=== PATIENT | male | born 1965 | race Caucasian/White ===

== ENCOUNTER 2016-12-31 11:21 | Inpatient (IN) | payer OTHER ==
[2016-12-31] VITALS (11 sets, daily range): BP systolic 116–156; BP diastolic 68–87; PULSE 71–129; RESP 15–26; TEMP 99.3–102.5; O2SAT 94–100
[~2016-12-31] VITALS: Ht 172.7 cm; Wt 59.0 kg
[2016-12-31] MEDS ORDERED: cefTRIAXone INJ 2,000 MG in SODIUM CHLORIDE 0.9% INJ 100 ML IV STA (11:27)
[2016-12-31] MEDS ORDERED: VANCOMYCIN INJ 1,000 MG in SODIUM CHLOR 0.9% 250 ML INJ 250 ML IV ONE (11:30)
[2016-12-31] MEDS ORDERED: ACETAMINOPHEN 650 MG SUPP RECTAL ONE (11:30)
--- NOTE | 2016-12-31 11:46 | PD ---
HPI Chief Complaint: Altered Mental Status Time Seen by Provider: 11:26 Travel History International Travel<30 days: No Contact w/Intl Traveler<30days: No Traveled to known affect area: No History of Present Illness HPI Middle-aged male was brought in by EMS after patient was found unresponsive at a local place. Patient was found unresponsive this morning by an acquaintance. EMS was called. Fire rescue reported patient probably had seizure activity when they arrived to the scene. EMS did not witness any seizure activity. Patient was lethargic and unable to provide information. Patient responded to the name Dar at the scene. Medication bottles was found at the scene. One of the bottle with label Keppra. Unable to get any information about medical history or medications or allergies. [facility] Social History Tobacco Use: No Allergies-Medications (Allergen,Severity, Reaction): Coded Allergies: UNOBTAINABLE (Unverified , 12/31/16) Reported Meds & Prescriptions Reported Meds & Active Scripts Active Active Prescriptions or Reported Medications Unobtainable Review of Systems General / Constitutional: Positive: Fever Eyes: No: Visual changes HENT: No: Headaches Cardiovascular: No: Chest Pain or Discomfort Respiratory: No: Shortness of Breath Gastrointestinal: No: Abdominal Pain Genitourinary: No: Dysuria Musculoskeletal: No: Pain Skin: No Rash Neurologic: Positive: Change in Mentation, No: Weakness Psychiatric: No: Depression Endocrine: No: Polydipsia Hematologic/Lymphatic: No: Easy Bruising Physical Exam Narrative GENERAL: Thin male, lethargic. SKIN: Focused skin assessment warm/dry. HEAD: Normocephalic. EYES: No scleral icterus. No injection or drainage. Pupils 3 mm equal reactive. NECK: Supple, trachea midline. No JVD or lymphadenopathy. Patient can move the neck without complaining of pain. CARDIOVASCULAR: Regular rate and rhythm without murmurs, gallops, or rubs. RESPIRATORY: Breath sounds equal bilaterally. No accessory muscle use. GASTROINTESTINAL: Abdomen soft, non-tender, nondistended. MUSCULOSKELETAL: No cyanosis, or edema. BACK: Nontender without obvious deformity. No CVA tenderness. neurologic exam: Patient open eyes on command. Patient is not verbalizing. Patient moves extremity minimally on pain stimuli. Deep tendon reflexes 2+ and equal. Negative Babinski. Data Data Last Documented VS Vital Signs Date Time Temp Pulse Resp B/P Pulse Ox O2 Delivery O2 Flow Rate FiO2 12/31/16 12:24 14 Non-Rebreather 95 12/31/16 12:19 95 12/31/16 12:19 9 12/31/16 11:29 102.5 129 156/85 Orders Electrocardiogram (12/31/16 11:27) Complete Blood Count With Diff (12/31/16 11:27) Comprehensive Metabolic Panel (12/31/16 11:) Prothrombin Time / Inr (Pt) (12/31/16 11:) Act Partial Throm Time (Ptt) (12/31/16 11:27) Lactic Acid Sepsis Protocol (12/31/16 11:27) Ckmb (Isoenzyme) Profile (12/31/16:) Troponin I (12/31/16:) Urinalysis - C+S If Indicated (12/31/16 11:27) Lumbar Puncture (12/31/16 11:27) Csf Hsv I/Ii Dna,Pcr (12/31/16 11:) Csf Cell Count + Differential (12/31/16 11:) Glucose, Csf (12/31/16 11:) Total Protein, Csf (12/31/16 11:27) Csf Culture And Gram Stain (12/31/16 11:) Blood Culture (12/31/16 11:27) Chest, Single Ap (12/31/16 11:27) Arterial Blood Gas (Abg) (12/31/16 11:27) Blood Glucose (12/31/16 11:27) Ecg Monitoring (12/31/16 11:) Iv Access Insert/Monitor (12/31/16:) Oximetry (12/31/16 11:27) Oxygen Administration (12/31/16 11:27) Urinary Catheter Insert/Apply (12/31/16 11:27) Acetaminophen Supp (Tylenol Supp) (12/31/16 11:30) Ct Brain W/O Iv Contrast(Rout) (12/31/16 11:27) Ceftriaxone Inj (Rocephin Inj) (12/31/16 11:27) Vancomycin Inj (Vancomycin Inj) (12/31/16 11:30) Sodium Chlor 0.9% 1000 Ml Inj (Ns 1000 M (12/31/16 12:00) Sodium Chlor 0.9% 1000 Ml Inj (Ns 1000 M (12/31/16 12:00) Restraints Non-Violent FELIPA.Q3H (12/31/16 12:23) Urine Culture (12/31/16 12:17) Drug Screen, Random Urine (12/31/16 13:10) Ammonia (12/31/16 13:11) Amylase (12/31/16 13:11) Magnesium (Mg) (12/31/16 13:11) Phosphorus (Po4) (12/31/16 13:11) Fibrinogen (12/31/16 13:11) Thyroid Stimulating Hormone (12/31/16 13:11) Troponin I (12/31/16 13:11) Hemoglobin (Hgb) A1c (12/31/16 13:11) Admit Order (Ed Use Only) (12/31/16 13:13) Labs Laboratory Tests Test 12/31/16 12/31/16 12/31/16 12/31/16 11:39 11:40 12:17 13:04 Blood Gas Puncture Site RT RADIAL Blood Gas Patient Temperature 98.6 Blood Gas HCO3 23 mmol/L Blood Gas Base Excess -3.4 mmol/L Blood Gas Oxygen Saturation 94 % Arterial Blood pH 7.22 Arterial Blood Partial 60 mmHg Pressure CO2 Arterial Blood Partial 177 mmHG Pressure O2 Arterial Blood Oxygen Content 19.1 Vol % Arterial Blood 3.5 % Carboxyhemoglobin Arterial Blood Methemoglobin 1.0 % Blood Gas Hemoglobin 14.2 G/DL Oxygen Delivery Device NONREBREATHER Blood Gas Liter Flow 10 L/M Blood Gas Inspired Oxygen 100 % White Blood Count 10.6 TH/MM3 Red Blood Count 3.98 MIL/MM3 Hemoglobin 14.1 GM/DL Hematocrit 41.2 % Mean Corpuscular Volume 103.5 FL Mean Corpuscular Hemoglobin 35.4 PG Mean Corpuscular Hemoglobin 34.2 % Concent Red Cell Distribution Width 13.5 % Platelet Count 138 TH/MM3 Mean Platelet Volume 7.1 FL Neutrophils (%) (Auto) 70.5 % Lymphocytes (%) (Auto) 15.6 % Monocytes (%) (Auto) 13.6 % Eosinophils (%) (Auto) 0.0 % Basophils (%) (Auto) 0.3 % Neutrophils # (Auto) 7.5 TH/MM3 Lymphocytes # (Auto) 1.7 TH/MM3 Monocytes # (Auto) 1.4 TH/MM3 Eosinophils # (Auto) 0.0 TH/MM3 Basophils # (Auto) 0.0 TH/MM3 CBC Comment AUTO DIFF Differential Total Cells 100 Counted Neutrophils % (Manual) 58 % Band Neutrophils % 28 % Lymphocytes % 3 % Monocytes % 11 % Neutrophils # (Manual) 9.1 TH/MM3 Differential Comment FINAL DIFF MANUAL Platelet Estimate LOW Platelet Morphology Comment NORMAL Prothrombin Time 11.4 SEC Prothromb Time International 1.0 RATIO Ratio Activated Partial 32.7 SEC Thromboplast Time Sodium Level 132 MEQ/L Potassium Level 3.7 MEQ/L Chloride Level 96 MEQ/L Carbon Dioxide Level 22.5 MEQ/L Anion Gap 14 MEQ/L Blood Urea Nitrogen 6 MG/DL Creatinine 0.94 MG/DL Estimat Glomerular Filtration 69 ML/MIN Rate Random Glucose 227 MG/DL Calcium Level 8.0 MG/DL Total Bilirubin 0.5 MG/DL Aspartate Amino Transf 40 U/L (AST/SGOT) Alanine Aminotransferase 33 U/L (ALT/SGPT) Alkaline Phosphatase 108 U/L Total Creatine Kinase 96 U/L Troponin I LESS THAN 0.02 NG/ML Total Protein 7.9 GM/DL Albumin 3.5 GM/DL Ethyl Alcohol Level LESS THAN 3 MG/DL Urine Color YELLOW Urine Turbidity HAZY Urine pH 5.0 Urine Specific [place] 1.017 Urine Protein 30 mg/dL Urine Glucose (UA) 1000 mg/dL Urine Ketones 40 mg/dL Urine Occult Blood MOD Urine Nitrite NEG Urine Bilirubin NEG Urine Urobilinogen LESS THAN 2.0 MG/DL Urine Leukocyte Esterase NEG Urine RBC LESS THAN 1 /hpf Urine WBC LESS THAN 1 /hpf Urine Squamous Epithelial <1 /hpf Cells Urine Bacteria OCC /hpf Urine Hyaline Casts 2 /lpf Urine Mucus FEW /lpf Microscopic Urinalysis Comment CATH-CULTURE IND Urine Opiates Screen NEG Urine Barbiturates Screen NEG Urine Amphetamines Screen NEG Urine Benzodiazepines Screen NEG Urine Cocaine Screen NEG Urine Cannabinoids Screen POS CSF Volume (Tube 1) 2.2 ML CSF Supernatant Color (tube 1) CLEAR CSF Gross Blood (Tube 1) 1+ CSF Volume (Tube 2) 1.7 ML CSF Supernatant Color (tube 2) CLEAR CSF Gross Blood (Tube 2) TRACE CSF WBC (Tube 2) 3 /MM3 CSF RBC (Tube 2) 162 /MM3 CSF Volume (Tube 3) 1.9 ML CSF Supernatant Color (tube 3) CLEAR CSF Gross Blood (Tube 3) TRACE CSF Volume (Tube 4) 2.0 ML CSF Supernatant Color (tube 4) CLEAR CSF Gross Blood (Tube 4) 1+ CSF Neutrophils 20 % CSF Lymphocytes 46 % CSF Monocytes 34 % CSF Glucose 112 MG/DL CSF Total Protein 48.3 MG/DL MDM Medical Decision Making Medical Screen Exam Complete: Yes Emergency Medical Condition: Yes Interpretation(s) Last Impressions Head CT 12/31/16 1127 Signed Impressions: Service Date/Time: Saturday, December 31, 2016 12:29 - CONCLUSION: 1. No acute intracranial abnormality is identified. 2. Paranasal sinus mucoperiosteal thickening. Dar Pham MD Chest X-Ray 12/31/16 1127 Signed Impressions: Service Date/Time: Saturday, December 31, 2016 11:52 - CONCLUSION: No acute cardiopulmonary abnormality is identified. Dar Pham MD 1305 PM. CBC WBC 10.6. Hemoglobin 14.1 hematocrit 41.2. MCV 103.5. Platelet 138. Differential Diagnosis Differential diagnosis including sepsis, meningitis, electrolyte imbalance, dehydration, OK, substance-induced mood disorder. Narrative Course Middle-age male was brought in for fever and altered mental status. Possible history of seizure. Sepsis workup started. Normal saline solution 2 L IV bolus. Rocephin 2 g IV. Vancomycin 1 g IV. Scripts Unable to Obtain Active Prescriptions or Reported Meds Liam Ferris MD Dec 31, 2016 11:45
[2016-12-31 11:54] LABS: BLOOD GAS BASE EXCESS -3.4 mmol/L (-2-2); BLOOD GAS CARBOXYHEMOGLOBIN 3.5 % (0-4); BLOOD GAS HCO3 23 mmol/L (22-26); BLOOD GAS O2 HGB SATURATION 94 % (90-100); BLOOD GAS OXYGEN CONTENT 19.1 Vol % (12.0-20.0); BLOOD GAS PCO2 60 mmHg (38-42); BLOOD GAS PO2 177 mmHG (61-120); BLOOD GAS TOTAL HGB 14.2 G/DL (12.0-16.0); CRITICAL VALUE YES; TEMP CORR TO 98.6
[2016-12-31 11:55] LABS: DRAW SITE RT RADIAL; FIO2 100 %; LITER FLOW 10 L/M; NUMBER OF ARTERIAL PUNCTURES 1; OXYGEN DEVICE NONREBREATHER; STAT YES; ULNAR PULSE PRESENT
[2016-12-31] MEDS ORDERED: SODIUM CHLOR 0.9% 1000 ML INJ 1,000 ML IV ONE ×2 (12:00)
--- NOTE | 2016-12-31 12:06 | RADRPT ---
EXAM DATE/TIME: 12/31/2016 11:52 [facility] COMPARISON: No previous studies available for comparison. INDICATIONS : Fever MEDICAL HISTORY : None. SURGICAL HISTORY : None. ENCOUNTER: Initial ACUITY: 1 day PAIN SCORE: Non-responsive. LOCATION: chest FINDINGS: Portable AP view of the chest demonstrates a normal-sized cardiac silhouette. No effusion, consolidat ion, or pneumothorax is visualized. The bones and soft tissues demonstrate no acute abnormality. Lung s are underinflated with mild atelectasis at the lung bases. CONCLUSION: No acute cardiopulmonary abnormality is identified. Dar Pham MD on December 31, 2016 at 12:04 Board Certified Radiologist. This report was verified electronically.
[2016-12-31 12:13] LABS: AUTOMATED NEUTROPHIL # 7.5 TH/MM3 (1.8-7.7); BASOPHIL % 0.3 % (0.0-2.0); HEMATOCRIT 41.2 % (39.0-51.0); LYMPH % 15.6 % (9.0-44.0); LYMPHOCYTE # 1.7 TH/MM3 (1.0-4.8); MEAN CELL VOLUME 103.5 FL (80.0-100.0); MEAN CORPUSCULAR HEMOGLOBIN 35.4 PG (27.0-34.0); MEAN CORPUSCULAR HGB CONC 34.2 % (32.0-36.0); MONO % 13.6 % (0.0-8.0); NEUT % 70.5 % (16.0-70.0); PLATELET COUNT 138 TH/MM3 (150-450); RED BLOOD COUNT 3.98 MIL/MM3 (4.50-5.90); RED CELL DISTRIBUTION WIDTH 13.5 % (11.6-17.2); WHITE BLOOD COUNT 10.6 TH/MM3 (4.0-11.0)
[2016-12-31 12:15] LABS: HEMO FLAGS AUTO DIFF
[2016-12-31 12:20] LABS: APTT (PATIENT) 32.7 SEC (24.3-30.1); PROTHROMBIN TIME - PATIENT 11.4 SEC (9.8-11.6)
[2016-12-31 12:27] LABS: ALT (GPT) 33 U/L (12-78); ANION GAP 14 MEQ/L (5-15); AST (GOT) 40 U/L (15-37); BICARBONATE 22.5 MEQ/L (21.0-32.0); BLOOD UREA NITROGEN 6 MG/DL (7-18); CHLORIDE 96 MEQ/L (98-107); GLOMERULAR FILTRATION RATE 69 ML/MIN (>89); POTASSIUM 3.7 MEQ/L (3.5-5.1); SODIUM (NA) 132 MEQ/L (136-145)
[2016-12-31 12:31] LABS: ALKALINE PHOSPHATASE 108 U/L (45-117); CREATINE KINASE 96 U/L (39-308); TOTAL BILIRUBIN ADULT 0.5 MG/DL (0.2-1.0)
--- NOTE | 2016-12-31 12:39 | RADRPT ---
EXAM DATE/TIME: 12/31/2016 12:29 [facility] COMPARISON: No previous studies available for comparison. INDICATIONS : Altered mental status; possible seizure. RADIATION DOSE: 35.64 CTDIvol (mGy) MEDICAL HISTORY : Non-responsive. SURGICAL HISTORY : Non-responsive. ENCOUNTER: Initial ACUITY: 1 day PAIN SCALE: Non-responsive LOCATION: cranial TECHNIQUE: Multiple contiguous axial images were obtained of the head. Using automated exposure control and adj ustment of the mA and/or kV according to patient size, radiation dose was kept as low as reasonably a chievable to obtain optimal diagnostic quality images. DICOM format image data is available electro nically for review and comparison. FINDINGS: CEREBRUM: There is mild cerebral atrophy. Ventricles are normal in size. No midline shift, mass lesion, hemorr j carlos or acute infarction. No extra-axial fluid collections are seen. POSTERIOR FOSSA: The cerebellum and brainstem demonstrate no acute finding. The 4th ventricle is midline. The cerebe llopontine angle is unremarkable. EXTRACRANIAL: There is severe mucoperiosteal thickening throughout the paranasal sinuses. Hardware is present bilat erally related to prior ORIF. SKULL: The calvaria is intact. No acute skull fracture. CONCLUSION: 1. No acute intracranial abnormality is identified. 2. Paranasal sinus mucoperiosteal thickening. Dar Pham MD on December 31, 2016 at 12:35 Board Certified Radiologist. This report was verified electronically.
[2016-12-31 12:41] LABS: BACTERIA, URINE OCC /hpf; BLOOD, URINE MOD (NEG); COMMENT (UR) CATH-CULTURE IND; CULTURE IF INDICATED CATH CULTURE IND; GLUCOSE,URINE 1000 mg/dL (NEG); HYALINE CAST, URINE 2 /lpf (RARE); KETONE, URINE 40 mg/dL (NEG); MUCUS URINE FEW /lpf (OCC); NITRITE,URINE NEG (NEG); SQUAMOUS EPITHELIAL CELL URINE <1 /hpf (0-5); URINE COLOR YELLOW (YELLW/STRAW)
[2016-12-31 12:50] LABS: BANDS 28 % (0-6); NEUTROPHIL # MANUAL DIFF 9.1 TH/MM3 (1.8-7.7); PLATELET ESTIMATE SMEAR LOW (NORMAL); PLATELET MORPHOLOGY NORMAL (NORMAL); POLYS (SEG NEUTROPHILS) 58 % (16-70); SCAN/DIFF FINAL DIFF MANUAL; WBC DIFF SAMPLE 100
[2016-12-31] MEDS ORDERED: LORazepam 2 MG TAB PO PRN (13:45)
[2016-12-31] MEDS ORDERED: FLUMAZENIL 0.5 MG/5 ML VIAL IV PUSH PRN (13:45)
[2016-12-31] MEDS ORDERED: SODIUM CHLORIDE 0.9% FLUSH 10 ML FLUSH IV FLUSH PRN ×2 (13:45→14:00)
[2016-12-31] MEDS ORDERED: LORazepam 1 MG TAB PO PRN (13:45)
[2016-12-31] MEDS ORDERED: RESP: ALBUTEROL 2.5 MG/3 ML NEB (PRN) INH (14:00)
[2016-12-31] MEDS ORDERED: MAGNESIUM SULFATE INJ 4 GM in SODIUM CHLORIDE 0.9% INJ 92 ML IV PRN (14:00)
[2016-12-31] MEDS ORDERED: BISACODYL 10 MG SUPP RECTAL PRN (14:00)
[2016-12-31] MEDS ORDERED: DEXTROSE 50% IN WATER 50 ML VIAL(D50) IV PRN (14:00)
[2016-12-31] MEDS ORDERED: ONDANSETRON HCL 4 MG/2 ML VIAL IV PRN (14:00)
[2016-12-31] MEDS ORDERED: LACTULOSE SYRUP 20 GM/30 ML CUP PO PRN (14:00)
[2016-12-31] MEDS ORDERED: CHLORHEXIDINE GLUCONATE 2 % 1 PACK (2 CLOTHS) TOP PRN (14:00)
[2016-12-31] MEDS ORDERED: MAGNESIUM SULFATE INJ 2 GM in SODIUM CHLORIDE 0.9% INJ 96 ML IV PRN (14:00)
[2016-12-31] MEDS ORDERED: POTASSIUM PHOSPHATE MONOBASIC 500 MG TAB PO/TUBE PRN (14:00)
[2016-12-31] MEDS ORDERED: MISCELLANEOUS NURSING INFORMATION XX SCH (14:00)
[2016-12-31] MEDS ORDERED: POTASSIUM PHOSPHATE MONOBASIC 500 MG TAB PO PRN (14:00)
[2016-12-31] MEDS ORDERED: MAGNESIUM HYDROXIDE SUSP 30 ML CUP PO PRN (14:00)
[2016-12-31] MEDS ORDERED: LORazepam 2 MG/ML VIAL IV PUSH ONE (14:00)
[2016-12-31] MEDS ORDERED: POTASSIUM CHLOR 20 MEQ PREMIX 100 ML IV PRN (14:00)
[2016-12-31] MEDS ORDERED: SENNOSIDES 8.6 MG TAB PO PRN (14:00)
[2016-12-31] MEDS ORDERED: SODIUM PHOSPHATE INJ 30 MMOL in SODIUM CHLOR 0.9% 250 ML INJ 240 ML IV PRN (14:00)
[2016-12-31] MEDS ORDERED: ACETAMINOPHEN 325 MG TAB PO PRN (14:00)
[2016-12-31] MEDS ORDERED: POTASSIUM CHLOR 40 MEQ PREMIX 100 ML IV PRN ×2 (14:00)
[2016-12-31] MEDS ORDERED: Vancomycin Consult Pharmacy 1 EA OTHER SCH (14:00)
[2016-12-31] MEDS ORDERED: MAGNESIUM OXIDE 400 MG TAB PO PRN (14:00)
[2016-12-31] MEDS ORDERED: GLUCAGON 1 MG/ML VIAL OTHER PRN (14:00)
[2016-12-31] MEDS ORDERED: POTASSIUM CHLORIDE 25 MEQ EFFERVESCENT TAB PO PRN (14:00)
[2016-12-31] MEDS ORDERED: levETIRAcetam INJ 500 MG in SODIUM CHLORIDE 0.9% INJ 100 ML IV ONE ×2 (14:00→14:30)
--- NOTE | 2016-12-31 14:06 | HHI.HP ---
[facility] Service Critical Care Medicine Primary Care Physician Unknown Admission Diagnosis sepsis. Rule out meningitis. Possible seizure. Diagnosis: (1) Seizure disorder Diagnosis: Principal (2) Bipolar 1 disorder Diagnosis: Principal (3) Alcoholism Diagnosis: Principal (4) Pyrexia Diagnosis: Principal (5) Altered mental status, unspecified Diagnosis: Principal (6) Macrocytosis without anemia Diagnosis: Principal (7) Thrombocytopenia Diagnosis: Principal (8) Hyponatremia Diagnosis: Principal (9) Hyperglycemia Diagnosis: Principal (10) Elevated AST (SGOT) Diagnosis: Principal (11) Depression Diagnosis: Principal (12) Polysubstance abuse Diagnosis: Principal (13) Tobacco abuse Diagnosis: Principal (14) Tetrahydrocannabinol (THC) use disorder, mild, abuse Diagnosis: Principal (15) COPD (chronic obstructive pulmonary disease) Diagnosis: Principal (16) Acute respiratory acidosis Diagnosis: Principal (17) Hepatitis C Diagnosis: Principal (18) Acute hypoxemic respiratory failure Diagnosis: Principal (19) SIRS (systemic inflammatory response syndrome) Chief Complaint: Found unresponsive by partner. Pyrexia. Travel History International Travel<30 Days: No Contact w/Intl Traveler <30 Da: No Traveled to Known Affected Are: No Sepsis Criteria SIRS Criteria (2 or more): Temp > 100.9 or < 96.8 Criteria Outcome: Meets SIRS criteria History of Present Illness This is a middle-aged male. Name possibly Dar Knox. He acknowledges. This is on his bottle of Levetiracetam. He acknowledges being approximately 51 years old. According to records, past medical history of EtOH , hepatitis C bipolar disorder, tobaccoism, THC/polysubstance abuse, COPD and alcoholism treatment 12-18 beers daily. He was found by an acquaintance unresponsive and febrile. His transported [facility] with questionable seizure activity noted in route. At this facility, patient was noted to be febrile temperature greater than 102. CT head showed plating in the right maxillary sinus region. He also has history of left mandible fracture with abscess formation after he left AMA. 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 Patient has a macrocytosis, thrombocytopenia, elevated AST and elevated PTT. Sodium is 132. Remainder baseline laboratories unremarkable. Lumbar puncture was clear to according to ED physician. Results still pending. Received 1 g vancomycin and 2 g ceftriaxone IV. Noted toxicology screen and multiple laboratory still pending at time of dictation. When I evaluated patient, ABG showed pH 7.2, PCO2 60, PO2 177. Patient was taken up nonrebreather mask is currently on a Venturi mask. Currently saturation 100%. Patient came more awake and alert. States he drinks alcohol and recently did methamphetamines. He states he did not inject. No track valdivia are appreciated on his arms. Review of Systems ROS Limitations: Altered Mental Status Past Family Social History Allergies: Coded Allergies: UNOBTAINABLE (Unverified , 12/31/16) Past Medical History Bipolar disorder Depression History of suicide ideation Alcoholism COPD Tobaccoism Hepatitis C Polysubstance abuse Past Surgical History Left mandible fracture status post ORIF Right maxillary fracture secondary TBI age 14 T&A History of lung procedure unknown type Reported Medications Unknown. On Keppra 500 mg daily according to bottle in front of us Active Ordered Medications Reviewed in EMR Family History Positive history of alcoholism according to past records. Patient is not able to tell me his family history due to altered mental status. Social History Degradation of EtOH 12-18 beers daily, 1-1/2 pack per day tobacco, THC use. Methamphetamine use. Physical Exam Vital Signs Vital Signs Date Time Temp Pulse Resp B/P Pulse Ox O2 Delivery O2 Flow Rate FiO2 12/31/16 13:47 100.4 80 18 116/71 97 Nasal Cannula 4 12/31/16 13:20 71 18 116/72 97 12/31/16 12:24 14 Non-Rebreather 95 12/31/16 12:19 95 Non-Rebreather 12/31/16 12:19 16 94 Non-Rebreather 9 12/31/16 11:29 102.5 129 15 156/85 96 Non-Rebreather 15 Physical Exam GENERAL: Middle-aged disheveled male, critically ill currently resting in bed on a Venturi mask SKIN: Warm and dry. No rash. Bilateral upper extremity tattoos. HEAD: Prior scars left mandible from traumatic brain injury/fracture/history of right maxillary ORIF EYES: Pupils equal and round about 2 mm bilaterally and reactive. No scleral icterus. No injection or drainage. ENT: No nasal bleeding or discharge. Mucous membranes pink and moist. NECK: Trachea midline. No JVD. CARDIOVASCULAR: Regular rate and rhythm. S1, S2. No S4. Without murmur RESPIRATORY: Diminished breath sounds throughout. Few bibasilar crackles. Positive end expiratory wheezes. GASTROINTESTINAL: Abdomen soft, non-tender, nondistended. Hypoactive bowel sounds MUSCULOSKELETAL: Extremities without significant peripheral edema. No obvious deformities. NEUROLOGICAL: Awake and arousable. Moves all 4 extremities spontaneously. Follows commands by nodding enhancing giving one-word answers. Laboratory Laboratory Tests Test 12/31/16 12/31/16 12/31/16 12/31/16 11:39 11:40 12:17 13:04 Blood Gas Puncture Site RT RADIAL Blood Gas Patient Temperature 98.6 Blood Gas HCO3 23 Blood Gas Base Excess -3.4 Blood Gas Oxygen Saturation 94 Arterial Blood pH 7.22 Arterial Blood Partial 60 Pressure CO2 Arterial Blood Partial 177 Pressure O2 Arterial Blood Oxygen Content 19.1 Arterial Blood 3.5 Carboxyhemoglobin Arterial Blood Methemoglobin 1.0 Blood Gas Hemoglobin 14.2 Oxygen Delivery Device NONREBREATHER Blood Gas Liter Flow 10 Blood Gas Inspired Oxygen 100 White Blood Count 10.6 Red Blood Count 3.98 Hemoglobin 14.1 Hematocrit 41.2 Mean Corpuscular Volume 103.5 Mean Corpuscular Hemoglobin 35.4 Mean Corpuscular Hemoglobin 34.2 Concent Red Cell Distribution Width 13.5 Platelet Count 138 Mean Platelet Volume 7.1 Neutrophils (%) (Auto) 70.5 Lymphocytes (%) (Auto) 15.6 Monocytes (%) (Auto) 13.6 Eosinophils (%) (Auto) 0.0 Basophils (%) (Auto) 0.3 Neutrophils # (Auto) 7.5 Lymphocytes # (Auto) 1.7 Monocytes # (Auto) 1.4 Eosinophils # (Auto) 0.0 Basophils # (Auto) 0.0 CBC Comment AUTO DIFF Differential Total Cells 100 Counted Neutrophils % (Manual) 58 Band Neutrophils % 28 Lymphocytes % 3 Monocytes % 11 Neutrophils # (Manual) 9.1 Differential Comment FINAL DIFF MANUAL Platelet Estimate LOW Platelet Morphology Comment NORMAL Prothrombin Time 11.4 Prothromb Time International 1.0 Ratio Activated Partial 32.7 Thromboplast Time Sodium Level 132 Potassium Level 3.7 Chloride Level 96 Carbon Dioxide Level 22.5 Anion Gap 14 Blood Urea Nitrogen 6 Creatinine 0.94 Estimat Glomerular Filtration 69 Rate Random Glucose 227 Calcium Level 8.0 Total Bilirubin 0.5 Aspartate Amino Transf 40 (AST/SGOT) Alanine Aminotransferase 33 (ALT/SGPT) Alkaline Phosphatase 108 Total Creatine Kinase 96 Troponin I LESS THAN 0.02 Total Protein 7.9 Albumin 3.5 Urine Color YELLOW Urine Turbidity HAZY Urine pH 5.0 Urine Specific [place] 1.017 Urine Protein 30 Urine Glucose (UA) 1000 Urine Ketones 40 Urine Occult Blood MOD Urine Nitrite NEG Urine Bilirubin NEG Urine Urobilinogen LESS THAN 2.0 Urine Leukocyte Esterase NEG Urine RBC LESS THAN 1 Urine WBC LESS THAN 1 Urine Squamous Epithelial <1 Cells Urine Bacteria OCC Urine Hyaline Casts 2 Urine Mucus FEW Microscopic Urinalysis Comment CATH-CULTURE IND CSF Glucose 112 CSF Total Protein 48.3 Date/Time Procedure Status Source Growth 12/31/16 13:04 Gram Stain Received Cerebral Spinal Fluid Lumbar Puncture Pending 12/31/16 13:04 CSF Culture Received Cerebral Spinal Fluid Lumbar Puncture Pending 12/31/16 12:17 Urine Culture Received Urine Catheterized Urine Pending 12/31/16 11:50 Aerobic Blood Culture Received Blood Peripheral Pending 12/31/16 11:50 Anaerobic Blood Culture Received Blood Peripheral Pending Result Diagram: 12/31/16 1140 12/31/16 1140 Imaging Last Impressions Head CT 12/31/16 1127 Signed Impressions: Service Date/Time: Saturday, December 31, 2016 12:29 - CONCLUSION: 1. No acute intracranial abnormality is identified. 2. Paranasal sinus mucoperiosteal thickening. Dar Pham MD Chest X-Ray 12/31/16 1127 Signed Impressions: Service Date/Time: Saturday, December 31, 2016 11:52 - CONCLUSION: No acute cardiopulmonary abnormality is identified. Dar Pham MD Assessment and Plan Assessment and Plan Neuro/Psych: Acute delirium rule out meningeoencephalitis Seizure disorder NOS History of TBI age 14 History of left mandible fracture 2014 Bipolar disorder NOS EtOH THC use History of polysubstance abuse History of suicide ideation CT head revealed retained hardware left mandible/right maxillary region from prior trauma, otherwise no acute intracranial findings CSF glucose 112/MBS is 227 and CSF protein 48.3 which is slightly elevated Cell count and differential pending See infectious disease for workup Seizure precaution/DT withdrawal protocol CIWA initiated see orders Thiamine, folate, multivitamin daily Drug screen, EtOH all pending CV: Sinus tachycardia Currently on normal saline at 84 cc an hour. Currently not requiring vasopressors and/or antihypertensives Resp: Acute hypoxemic respiratory failure COPD Tobaccoism 1.5 packs per day ABG revealed pH of 7.2 with CO2 retention. Recheck ABG at 1600 hrs. Currently on Venturi mask titrate to maintain saturations greater than equal to 92% Albuterol/Atrovent nebulizers every 6 hours with albuterol realizes every 2 hours when necessary dyspnea Follow-up chest x-ray in a.m. Tobacco cessation will be encouraged when appropriate GI: Elevated AST History pancreatitis History of hepatitis C unknown genotype/treatment Patient is currently nothing by mouth Check amylase/lipase Pantoprazole for GI prophylaxis Docusate sodium/senna 1 tablet twice a day for bowel regimen : Lantigua catheter can be placed for accurate I's and O's in a critically ill patient Endo: Hyperglycemia Sliding-scale insulin with Novulin r to maintain euglycemia with Accu-Cheks every 6 hours Renal: Currently on normal saline at 84 cc an hour Accurate I's and O's Monitor urine output Recheck BMP in a.m. Heme: Macrocytosis without anemia Elevated PTT Monitor CBC daily. Follow trends ID: Currently on ceftriaxone 2 g IV every 12 hours, vancomycin and acyclovir 10 mg per cardiothoracic IV every 8 hours. Consider adding ampicillin once allergies known2 grams IV every 4 hours if ages over 50/EtOH use its CSF positive Gram stain on CSF pending Blood cultures 2 pending UA negative Influenza pending FEN: Hyponatremia Replace electrolytes as clinically indicated per ICU electrolyte protocol Currently on normal saline at 84 cc an hour. Recheck sodium in AM. MSK: Currently on bedrest PT evaluate and treat for range of motion Access - Utilize peripheral IV. Central line if indicated Prophylaxis - GI - pantoprazole - DVT - SCD/enoxaparin Critical Care: The total critical care time was 45 minutes. Time to perform other separately billable procedures was not included in the critical care time. Code Status Full code Discussed Condition With Dr. Ferris/ED physician. Care plan discussed and all questions answered. Problem Qualifiers (1) Pyrexia: Qualified Code: R50.2 - Drug-induced fever (2) Altered mental status, unspecified: Qualified Code: R41.82 - Altered mental status, unspecified altered mental status type (3) Depression: Qualified Code: F33.9 - Episode of recurrent major depressive disorder, unspecified depression episode severity (4) COPD (chronic obstructive pulmonary disease): Qualified Code: J44.9 - Chronic obstructive pulmonary disease, unspecified COPD type (5) Hepatitis C: Qualified Code: B19.20 - Hepatitis C virus infection without hepatic coma, unspecified chronicity Ruben Guevara MD Dec 31, 2016 14:06
[2016-12-31 14:07] LABS: GROSS BLOOD TUBE #1 1+ (0); SUPERNATE COLOR TUBE #1 CLEAR (CLEAR); VOLUME TUBE # 1 2.2 ML; VOLUME TUBE # 2 1.7 ML; WBC TUBE #2 3 /MM3 (0-10)
[2016-12-31 14:08] LABS: CSF LYMPHOCYTES 46 %; CSF MONOCYTES 34 %; CSF NEUTROPHILS 20 %; GROSS BLOOD TUBE #3 TRACE (0); GROSS BLOOD TUBE #4 1+ (0); SUPERNATE COLOR TUBE #2 CLEAR (CLEAR); SUPERNATE COLOR TUBE #3 CLEAR (CLEAR); SUPERNATE COLOR TUBE #4 CLEAR (CLEAR); VOLUME TUBE # 3 1.9 ML
[2016-12-31 14:13] LABS: GROSS BLOOD TUBE #2 TRACE (0)
[2016-12-31 14:15] LABS: AMPHETAMINE, URINE NEG (NEG); BARBITURATES, URINE NEG (NEG); COCAINE, URINE NEG (NEG)
[2016-12-31] MEDS: ACYCLOVIR INJ 650 MG in SODIUM CHLORIDE 0.9% INJ 100 ML IV SCH (15:00)
[2016-12-31] MEDS: MULTIVITAMIN INJ 10 ML, FOLIC ACID INJ 1 MG in SODIUM CHLORID 0.9% 500 ML INJ 500 ML IV SCH (15:03)
[2016-12-31] MEDS: SODIUM CHLOR 0.9% 1000 ML INJ 1,000 ML IV SCH ×2 (15:05→21:53)
[2016-12-31 15:34] LABS: LACTIC ACID GHOST NOT REPORTABLE
[2016-12-31 16:36] LABS: BLOOD GAS CARBOXYHEMOGLOBIN 2.4 % (0-4); BLOOD GAS HCO3 25 mmol/L (22-26); BLOOD GAS METHEMOGLOBIN 0.7 % (0-2); BLOOD GAS O2 HGB SATURATION 93 % (90-100); BLOOD GAS OXYGEN CONTENT 16.7 Vol % (12.0-20.0); BLOOD GAS PCO2 42 mmHg (38-42); BLOOD GAS PO2 82 mmHG (61-120); BLOOD GAS TOTAL HGB 12.7 G/DL (12.0-16.0); CRITICAL VALUE NO; OXYGEN DEVICE NASAL CANNULA; TEMP CORR TO 98.6
[2016-12-31 16:37] LABS: DRAW SITE RT RADIAL; FIO2 36 %; LITER FLOW 4 L/M; NUMBER OF ARTERIAL PUNCTURES 1; STAT NO; ULNAR PULSE PRESENT
[2016-12-31] MEDS: RESP: ALBUTEROL 2.5 MG/IPRATROPIUM 0.5 MG NEB (SCH) INH ×2 (16:44→19:52)
[2016-12-31] MEDS: INSULIN NovoLIN REGULAR SUPPLEMENTAL SCALE SQ SCH (18:00)
[2016-12-31] MEDS: ARTIFICIAL TEARS OPTH SOLN 15 ML BTL EACH EYE SCH (18:00)
[2016-12-31] MEDS: DOCUSATE SODIUM 50 MG/SENNA 8.6 MG TAB PO SCH (21:00)
[2016-12-31] MEDS: SODIUM CHLORIDE 0.9% FLUSH 10 ML FLUSH IV FLUSH SCH ×2 (21:00)
[2016-12-31] MEDS: THIAMINE INJ 100 MG in SODIUM CHLORIDE 0.9% INJ 100 ML IV SCH (21:31)
[2016-12-31] MEDS: levETIRAcetam INJ 500 MG in SODIUM CHLORIDE 0.9% INJ 100 ML IV SCH (21:51)
[2017-01-01] VITALS (19 sets, daily range): BP systolic 116–157; BP diastolic 65–91; PULSE 56–94; RESP 16–38; TEMP 98.4–99.5; O2SAT 92–97
[2017-01-01] MEDS: ACYCLOVIR INJ 650 MG in SODIUM CHLORIDE 0.9% INJ 100 ML IV SCH ×4 (00:15→22:26)
[2017-01-01] MEDS: INSULIN NovoLIN REGULAR SUPPLEMENTAL SCALE SQ SCH ×4 (00:16→18:00)
[2017-01-01 00:40] LABS: MAGNESIUM 2.1 MG/DL (1.5-2.5)
[2017-01-01 00:58] LABS: AMYLASE 138 U/L (25-115)
[2017-01-01] MEDS: cefTRIAXone INJ 2,000 MG in SODIUM CHLORIDE 0.9% INJ 100 ML IV SCH ×3 (01:13→23:48)
[2017-01-01] MEDS: VANCOMYCIN 1,000 MG/NS 250 ML IV SCH ×4 (01:23→15:19)
[2017-01-01] MEDS: CHLORHEXIDINE GLUCONATE 2 % 1 PACK (2 CLOTHS) TOP SCH (03:11)
[2017-01-01 05:01] LABS: AUTOMATED NEUTROPHIL # 4.3 TH/MM3 (1.8-7.7); BASOPHIL % 0.1 % (0.0-2.0); HEMATOCRIT 39.6 % (39.0-51.0); HEMO FLAGS DIFF FINAL; LYMPH % 15.7 % (9.0-44.0); LYMPHOCYTE # 0.9 TH/MM3 (1.0-4.8); MEAN CELL VOLUME 101.6 FL (80.0-100.0); MEAN CORPUSCULAR HEMOGLOBIN 34.9 PG (27.0-34.0); MEAN CORPUSCULAR HGB CONC 34.4 % (32.0-36.0); MONO % 12.2 % (0.0-8.0); PLATELET COUNT 109 TH/MM3 (150-450); RED CELL DISTRIBUTION WIDTH 13.6 % (11.6-17.2)
[2017-01-01 05:16] LABS: APTT (PATIENT) 31.5 SEC (24.3-30.1); PROTHROMBIN TIME - PATIENT 11.4 SEC (9.8-11.6)
[2017-01-01 05:32] LABS: ALKALINE PHOSPHATASE 87 U/L (45-117); ALT (GPT) 31 U/L (12-78); ANION GAP 11 MEQ/L (5-15); AST (GOT) 65 U/L (15-37); BLOOD UREA NITROGEN 3 MG/DL (7-18); CHLORIDE 97 MEQ/L (98-107); GLOMERULAR FILTRATION RATE 171 ML/MIN (>89); SODIUM (NA) 135 MEQ/L (136-145); TOTAL BILIRUBIN ADULT 0.5 MG/DL (0.2-1.0)
[2017-01-01] MEDS: SODIUM CHLORIDE 0.9% FLUSH 10 ML FLUSH IV FLUSH SCH ×4 (08:42→20:35)
[2017-01-01] MEDS: levETIRAcetam INJ 500 MG in SODIUM CHLORIDE 0.9% INJ 100 ML IV SCH ×2 (08:42→20:35)
[2017-01-01] MEDS: DOCUSATE SODIUM 50 MG/SENNA 8.6 MG TAB PO SCH ×2 (08:42→20:35)
[2017-01-01] MEDS: FOLIC ACID 1 MG TAB PO SCH (08:42)
[2017-01-01] MEDS: PANTOPRAZOLE SODIUM 40 MG VIAL IV SCH (08:42)
[2017-01-01] MEDS: POTASSIUM PHOSPHATE INJ 30 MMOL in SODIUM CHLOR 0.9% 250 ML INJ 250 ML IV PRN (08:43)
[2017-01-01] MEDS: ARTIFICIAL TEARS OPTH SOLN 15 ML BTL EACH EYE SCH ×3 (09:00→17:33)
--- NOTE | 2017-01-01 09:39 | HHI.CCPN ---
Subjective Remarks/Hospital Course This is a middle-aged male. Name possibly Dar Knox. He acknowledges. This is on his bottle of Levetiracetam. He acknowledges being approximately 51 years old. According to records, past medical history of EtOH , hepatitis C bipolar disorder, tobaccoism, THC/polysubstance abuse, COPD and alcoholism treatment 12-18 beers daily. He was found by an acquaintance unresponsive and febrile. His transported to [facility] with questionable seizure activity noted in route. At this facility, patient was noted to be febrile temperature greater than 102. CT head showed plating in the right maxillary sinus region. He also has history of left mandible fracture with abscess formation after he left AMA. 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 Patient has a macrocytosis, thrombocytopenia, elevated AST and elevated PTT. Sodium is 132. Remainder baseline laboratories unremarkable. Lumbar puncture was clear to according to ED physician. Results still pending. Received 1 g vancomycin and 2 g ceftriaxone IV. Noted toxicology screen and multiple laboratory still pending at time of dictation. When I evaluated patient, ABG showed pH 7.2, PCO2 60, PO2 177. Patient was taken up nonrebreather mask is currently on a Venturi mask. Currently saturation 100%. Patient came more awake and alert. States he drinks alcohol and recently did methamphetamines. He states he did not inject. No track valdivia are appreciated on his arms. 01/01 No events overnight. Patient is awake and alert on room air oxygen when seen. Afebrile. LP yesterday showed clear CSF. Objective Vital Signs Date Time Temp Pulse Resp B/P Pulse Ox O2 Delivery O2 Flow Rate FiO2 01/01/17 06:00 56 24 133/76 93 01/01/17 04:00 98.4 12/31/16 22:00 Nasal Cannula 2 12/31/16 12:24 95 Result Diagram: 01/01/17 0429 01/01/17 0429 Other Results Laboratory Tests Test 12/31/16 12/31/16 12/31/16 12/31/16 11:39 11:40 12:17 13:04 Blood Gas Puncture Site RT RADIAL Blood Gas Patient Temperature 98.6 Blood Gas HCO3 23 mmol/L Blood Gas Base Excess -3.4 mmol/L Blood Gas Oxygen Saturation 94 % Arterial Blood pH 7.22 Arterial Blood Partial 60 mmHg Pressure CO2 Arterial Blood Partial 177 mmHG Pressure O2 Arterial Blood Oxygen Content 19.1 Vol % Arterial Blood 3.5 % Carboxyhemoglobin Arterial Blood Methemoglobin 1.0 % Blood Gas Hemoglobin 14.2 G/DL Oxygen Delivery Device NONREBREATHER Blood Gas Liter Flow 10 L/M Blood Gas Inspired Oxygen 100 % White Blood Count 10.6 TH/MM3 Red Blood Count 3.98 MIL/MM3 Hemoglobin 14.1 GM/DL Hematocrit 41.2 % Mean Corpuscular Volume 103.5 FL Mean Corpuscular Hemoglobin 35.4 PG Mean Corpuscular Hemoglobin 34.2 % Concent Red Cell Distribution Width 13.5 % Platelet Count 138 TH/MM3 Mean Platelet Volume 7.1 FL Neutrophils (%) (Auto) 70.5 % Lymphocytes (%) (Auto) 15.6 % Monocytes (%) (Auto) 13.6 % Eosinophils (%) (Auto) 0.0 % Basophils (%) (Auto) 0.3 % Neutrophils # (Auto) 7.5 TH/MM3 Lymphocytes # (Auto) 1.7 TH/MM3 Monocytes # (Auto) 1.4 TH/MM3 Eosinophils # (Auto) 0.0 TH/MM3 Basophils # (Auto) 0.0 TH/MM3 CBC Comment AUTO DIFF Differential Total Cells 100 Counted Neutrophils % (Manual) 58 % Band Neutrophils % 28 % Lymphocytes % 3 % Monocytes % 11 % Neutrophils # (Manual) 9.1 TH/MM3 Differential Comment FINAL DIFF MANUAL Platelet Estimate LOW Platelet Morphology Comment NORMAL Prothrombin Time 11.4 SEC Prothromb Time International 1.0 RATIO Ratio Activated Partial 32.7 SEC Thromboplast Time Sodium Level 132 MEQ/L Potassium Level 3.7 MEQ/L Chloride Level 96 MEQ/L Carbon Dioxide Level 22.5 MEQ/L Anion Gap 14 MEQ/L Blood Urea Nitrogen 6 MG/DL Creatinine 0.94 MG/DL Estimat Glomerular Filtration 69 ML/MIN Rate Random Glucose 227 MG/DL Calcium Level 8.0 MG/DL Total Bilirubin 0.5 MG/DL Aspartate Amino Transf 40 U/L (AST/SGOT) Alanine Aminotransferase 33 U/L (ALT/SGPT) Alkaline Phosphatase 108 U/L Total Creatine Kinase 96 U/L Troponin I LESS THAN 0.02 NG/ML Total Protein 7.9 GM/DL Albumin 3.5 GM/DL Ethyl Alcohol Level LESS THAN 3 MG/DL Urine Color YELLOW Urine Turbidity HAZY Urine pH 5.0 Urine Specific Sharon 1.017 Urine Protein 30 mg/dL Urine Glucose (UA) 1000 mg/dL Urine Ketones 40 mg/dL Urine Occult Blood MOD Urine Nitrite NEG Urine Bilirubin NEG Urine Urobilinogen LESS THAN 2.0 MG/DL Urine Leukocyte Esterase NEG Urine RBC LESS THAN 1 /hpf Urine WBC LESS THAN 1 /hpf Urine Squamous Epithelial <1 /hpf Cells Urine Bacteria OCC /hpf Urine Hyaline Casts 2 /lpf Urine Mucus FEW /lpf Microscopic Urinalysis Comment CATH-CULTURE IND Urine Opiates Screen NEG Urine Barbiturates Screen NEG Urine Amphetamines Screen NEG Urine Benzodiazepines Screen NEG Urine Cocaine Screen NEG Urine Cannabinoids Screen POS CSF Volume (Tube 1) 2.2 ML CSF Supernatant Color (tube 1) CLEAR CSF Gross Blood (Tube 1) 1+ CSF Volume (Tube 2) 1.7 ML CSF Supernatant Color (tube 2) CLEAR CSF Gross Blood (Tube 2) TRACE CSF WBC (Tube 2) 3 /MM3 CSF RBC (Tube 2) 162 /MM3 CSF Volume (Tube 3) 1.9 ML CSF Supernatant Color (tube 3) CLEAR CSF Gross Blood (Tube 3) TRACE CSF Volume (Tube 4) 2.0 ML CSF Supernatant Color (tube 4) CLEAR CSF Gross Blood (Tube 4) 1+ CSF Neutrophils 20 % CSF Lymphocytes 46 % CSF Monocytes 34 % CSF Glucose 112 MG/DL CSF Total Protein 48.3 MG/DL Test 12/31/16 12/31/16 12/31/16 01/01/17 13:34 16:20 16:28 00:03 Lactic Acid Level 2.1 mmol/L 1.4 mmol/L Blood Gas Puncture Site RT RADIAL Blood Gas Patient Temperature 98.6 Blood Gas HCO3 25 mmol/L Blood Gas Base Excess 1.0 mmol/L Blood Gas Oxygen Saturation 93 % Arterial Blood pH 7.40 Arterial Blood Partial 42 mmHg Pressure CO2 Arterial Blood Partial 82 mmHG Pressure O2 Arterial Blood Oxygen Content 16.7 Vol % Arterial Blood 2.4 % Carboxyhemoglobin Arterial Blood Methemoglobin 0.7 % Blood Gas Hemoglobin 12.7 G/DL Oxygen Delivery Device NASAL CANNULA Blood Gas Liter Flow 4 L/M Blood Gas Inspired Oxygen 36 % Fibrinogen 471 mg/dL Phosphorus Level 1.5 MG/DL Magnesium Level 2.1 MG/DL Ammonia 33 MCMOL/L Troponin I 0.03 NG/ML Amylase Level 138 U/L Thyroid Stimulating Hormone 1.500 uIU/ML 3rd Gen Test 01/01/17 01/01/17 01:25 04:29 Nasal Screen MRSA (PCR) MRSA NOT DETECTED White Blood Count 6.0 TH/MM3 Red Blood Count 3.90 MIL/MM3 Hemoglobin 13.6 GM/DL Hematocrit 39.6 % Mean Corpuscular Volume 101.6 FL Mean Corpuscular Hemoglobin 34.9 PG Mean Corpuscular Hemoglobin 34.4 % Concent Red Cell Distribution Width 13.6 % Platelet Count 109 TH/MM3 Mean Platelet Volume 7.5 FL Neutrophils (%) (Auto) 72.0 % Lymphocytes (%) (Auto) 15.7 % Monocytes (%) (Auto) 12.2 % Eosinophils (%) (Auto) 0.0 % Basophils (%) (Auto) 0.1 % Neutrophils # (Auto) 4.3 TH/MM3 Lymphocytes # (Auto) 0.9 TH/MM3 Monocytes # (Auto) 0.7 TH/MM3 Eosinophils # (Auto) 0.0 TH/MM3 Basophils # (Auto) 0.0 TH/MM3 CBC Comment DIFF FINAL Differential Comment Prothrombin Time 11.4 SEC Prothromb Time International 1.0 RATIO Ratio Activated Partial 31.5 SEC Thromboplast Time Sodium Level 135 MEQ/L Potassium Level 3.0 MEQ/L Chloride Level 97 MEQ/L Carbon Dioxide Level 27.0 MEQ/L Anion Gap 11 MEQ/L Blood Urea Nitrogen 3 MG/DL Creatinine 0.43 MG/DL Estimat Glomerular Filtration 171 ML/MIN Rate Random Glucose 96 MG/DL Lactic Acid Level 1.4 mmol/L Calcium Level 7.7 MG/DL Phosphorus Level 1.1 MG/DL Magnesium Level 2.0 MG/DL Total Bilirubin 0.5 MG/DL Aspartate Amino Transf 65 U/L (AST/SGOT) Alanine Aminotransferase 31 U/L (ALT/SGPT) Alkaline Phosphatase 87 U/L Total Protein 7.3 GM/DL Albumin 3.0 GM/DL Imaging Last Impressions Head CT 12/31/16 112 Signed Impressions: Service Date/Time: Saturday, December 31, 2016 12:29 - CONCLUSION: 1. No acute intracranial abnormality is identified. 2. Paranasal sinus mucoperiosteal thickening. Dar Pham MD Chest X-Ray 12/31/16 1127 Signed Impressions: Service Date/Time: Saturday, December 31, 2016 11:52 - CONCLUSION: No acute cardiopulmonary abnormality is identified. Dar Pham MD Objective Remarks GENERAL: Middle-aged disheveled male lying in bed in [facility] SKIN: Warm and dry. No rash. Bilateral upper extremity tattoos. HEAD: Prior scars left mandible from traumatic brain injury/fracture/history of right maxillary ORIF EYES: Pupils equal and round about 2 mm bilaterally and reactive. No scleral icterus. No injection or drainage. ENT: No nasal bleeding or discharge. Mucous membranes pink and moist. NECK: Trachea midline. No JVD. CARDIOVASCULAR: Regular rate and rhythm. S1, S2. No S4. Without murmur RESPIRATORY: Diminished breath sounds throughout. GASTROINTESTINAL: Abdomen soft, non-tender, nondistended. Hypoactive bowel sounds MUSCULOSKELETAL: Extremities without significant peripheral edema. No obvious deformities. NEUROLOGICAL: Awake and alert A/P Assessment and Plan Neuro/Psych: Acute delirium- improving Seizure disorder NOS History of TBI age 14 History of left mandible fracture 2014 Bipolar disorder NOS EtOH THC use History of polysubstance abuse History of suicide ideation CT head revealed retained hardware left mandible/right maxillary region from prior trauma, otherwise no acute intracranial findings CSF glucose 112/MBS is 227 and CSF protein 48.3 which is slightly elevated Clear CSF with 3 WBC Seizure precaution/DT withdrawal protocol CIWA initiated see orders Thiamine, folate, multivitamin daily UDS- Cannabinoids Check EEG, neuro eval CV: Monitor HR and BP keep MAP>65mmhg Resp: COPD Tobaccoism 1.5 packs per day Oxygen to keep sat > 92% Albuterol/Atrovent nebulizers every 6 hours with albuterol realizes every 2 hours when necessary dyspnea CXR: No acute disease Tobacco cessation will be encouraged when appropriate GI: Elevated AST History pancreatitis History of hepatitis C unknown genotype/treatment Start heart healthy diet Pantoprazole for GI prophylaxis Docusate sodium/senna 1 tablet twice a day for bowel regimen : Hyponatremia Monitor renal function, I/O's, electrolytes replacement per protocol. Will need K, Phos replacement today On NS@84ml/hr Endo: Hyperglycemia SSI with Novolin r to maintain euglycemia with Accu-Cheks every 6 hours Heme: Macrocytosis without anemia Elevated PTT Monitor CBC daily. Follow trends ID: Currently on ceftriaxone 2 g IV every 12 hours, vancomycin and acyclovir. Follow up on CSF cx, HSV DNA PCR Follow up on blood and urine cxs. Influenza Ag negative MSK: Currently on bedrest PT evaluate and treat for range of motion Access - Utilize peripheral IV. Central line if indicated Prophylaxis - GI - pantoprazole - DVT - SCD/enoxaparin Will sign off and transfer care to [facility] Level 3 Filiberto Zhou MD Jan 01, 2017 09:38
[2017-01-01] MEDS: LORazepam 2 MG/ML VIAL IV PUSH PRN ×5 (10:28→23:49)
[2017-01-01] MEDS: ENOXAPARIN SODIUM 40 MG/0.4 ML SYRINGE SQ SCH (10:28)
[2017-01-01] MEDS: RESP: ALBUTEROL 2.5 MG/IPRATROPIUM 0.5 MG NEB (SCH) INH ×3 (10:38→22:00)
--- NOTE | 2017-01-01 14:51 | MB ---
cc: CHARO BHATT M.D. DATE OF CONSULTATION: 01/01/2017 HISTORY OF PRESENT ILLNESS A 51-year-old seen in consultation with history of possible seizure. He came in apparently found by acquaintance unresponsive and febrile, brought to the hospital. He was admitted yesterday. The patient describes that he had massive seizures. He is a poor historian. There is a history of heavy alcohol abuse, history of drug abuse and hepatitis. He says he ran out of [employer] a few days ago. He admits being homeless. NEUROLOGIC EXAMINATION He was alert, pleasant, cooperative and he is oriented, knew the exact date, he knows place and provides history but does not know exactly what happened bringing him to this admission. He is in no distress, neck is supple. Ocular movements and visual nunez are full. He has good strength in all four limbs. Reflexes were 1-2+ throughout. Plantar response is flexor. ASSESSMENT Probable seizure recurrence. Noncompliance. From a neurological standpoint he is already on thiamine and folic acid. He is on vancomycin, ceftriaxone and he had a spinal tap which was essentially negative. He is back on Keppra. He was given acyclovir and he looks quite well and probably back to baseline at this point. Therefore, no other neurologic intervention. human services manager. Thank you for asking us to assist in his care. Charo Bhatt MD OFC/TLL /2:18 PM /2:41 PM
[2017-01-01] MEDS: THIAMINE INJ 100 MG in SODIUM CHLORIDE 0.9% INJ 100 ML IV SCH (15:37)
--- NOTE | 2017-01-01 16:23 | EKG ---
Date Performed: 12/31/2016 Time Performed: 11:58:02 PTAGE: 89 years EKG: SINUS TACHYCARDIA WITH SHORT AL INTERVAL INDETERMINATE AXIS ABNORMAL RHYTHM ECG NO PREVIOUS TRACING DOCTOR: Andres Chandler Interpretating Date/Time 01/01/2017 16:20:39
[2017-01-01] MEDS: SODIUM CHLOR 0.9% 1000 ML INJ 1,000 ML IV SCH (16:53)
[2017-01-01] MEDS: MULTIVITAMIN INJ 10 ML, FOLIC ACID INJ 1 MG in SODIUM CHLORID 0.9% 500 ML INJ 500 ML IV SCH (16:53)
[2017-01-01 17:03] LABS: HEMOGLOBIN A1a 1.3 %; HEMOGLOBIN A1b 0.7 %; HEMOGLOBIN Ao 84.9 %; HEMOGLOBIN F 1.5 %; HEMOGLOBIN LA1C 2.3 %; HEMOGLOBIN P3 3.6 %
[2017-01-01] MEDS: ACETAMINOPHEN/HYDROcodone 325 MG/5 MG TAB PO PRN (20:37)
[2017-01-01] MEDS ORDERED: DEXMEDETOMIDINE HCL 200 MCG/2 ML VIAL ONE (22:06)
[2017-01-01] MEDS ORDERED: DEXMEDETOMIDINE INJ 200 MCG in SODIUM CHLORIDE 0.9% INJ 50 ML IV SCH (22:15)
[2017-01-01] MEDS: DEXMEDETOMIDINE INJ 1,000 MCG in SODIUM CHLOR 0.9% 250 ML INJ 240 ML IV SCH (23:28)
[2017-01-02] VITALS (20 sets, daily range): BP systolic 120–178; BP diastolic 81–101; PULSE 45–90; RESP 23–24; TEMP 97.7–99.7; O2SAT 94–99
[2017-01-02] MEDS: POTASSIUM PHOSPHATE INJ 30 MMOL in SODIUM CHLOR 0.9% 250 ML INJ 250 ML IV PRN ×2 (01:00→12:59)
[2017-01-02] MEDS ORDERED: PHARMACY ORDERED LAB ONE (01:45)
[2017-01-02] MEDS: LORazepam 2 MG/ML VIAL IV PUSH PRN ×11 (02:43→22:23)
[2017-01-02] MEDS: RESP: ALBUTEROL 2.5 MG/IPRATROPIUM 0.5 MG NEB (SCH) INH ×4 (04:00→21:19)
[2017-01-02 04:20] LABS: AUTOMATED NEUTROPHIL # 3.4 TH/MM3 (1.8-7.7); BASOPHIL % 0.3 % (0.0-2.0); EOSINOPHIL % 0.1 % (0.0-4.0); HEMATOCRIT 38.9 % (39.0-51.0); HEMO FLAGS DIFF FINAL; LYMPH % 24.6 % (9.0-44.0); LYMPHOCYTE # 1.3 TH/MM3 (1.0-4.8); MEAN CELL VOLUME 99.4 FL (80.0-100.0); MEAN CORPUSCULAR HEMOGLOBIN 35.7 PG (27.0-34.0); MEAN CORPUSCULAR HGB CONC 35.9 % (32.0-36.0); MONO % 10.3 % (0.0-8.0); NEUT % 64.7 % (16.0-70.0); PLATELET COUNT 131 TH/MM3 (150-450); RED BLOOD COUNT 3.91 MIL/MM3 (4.50-5.90); RED CELL DISTRIBUTION WIDTH 13.4 % (11.6-17.2); WHITE BLOOD COUNT 5.3 TH/MM3 (4.0-11.0)
[2017-01-02 04:47] LABS: BICARBONATE 29.1 MEQ/L (21.0-32.0); MAGNESIUM 2.1 MG/DL (1.5-2.5); POTASSIUM 3.3 MEQ/L (3.5-5.1)
[2017-01-02] MEDS: INSULIN NovoLIN REGULAR SUPPLEMENTAL SCALE SQ SCH ×4 (06:00→17:56)
[2017-01-02] MEDS: VANCOMYCIN 1,000 MG/NS 250 ML IV SCH ×2 (06:08)
[2017-01-02] MEDS: CHLORHEXIDINE GLUCONATE 2 % 1 PACK (2 CLOTHS) TOP SCH (06:08)
[2017-01-02] MEDS: ACYCLOVIR INJ 650 MG in SODIUM CHLORIDE 0.9% INJ 100 ML IV SCH (06:09)
[2017-01-02] MEDS: SODIUM CHLORIDE 0.9% FLUSH 10 ML FLUSH IV FLUSH SCH ×3 (08:31→19:34)
[2017-01-02] MEDS: PANTOPRAZOLE SODIUM 40 MG VIAL IV SCH (08:31)
[2017-01-02] MEDS: levETIRAcetam INJ 500 MG in SODIUM CHLORIDE 0.9% INJ 100 ML IV SCH ×2 (08:31→19:34)
[2017-01-02] MEDS: ARTIFICIAL TEARS OPTH SOLN 15 ML BTL EACH EYE SCH ×3 (08:32→17:56)
[2017-01-02] MEDS: ENOXAPARIN SODIUM 40 MG/0.4 ML SYRINGE SQ SCH (08:32)
[2017-01-02] MEDS: DOCUSATE SODIUM 50 MG/SENNA 8.6 MG TAB PO SCH ×2 (08:35→19:34)
[2017-01-02] MEDS: FOLIC ACID 1 MG TAB PO SCH (08:35)
[2017-01-02 08:37] LABS: HSV 1,PCR Negative (Negative)
[2017-01-02] MEDS ORDERED: HALOPERIDOL LACTATE 5 MG/ML AMP IM PRN (10:00)
[2017-01-02] MEDS ORDERED: VANCOMYCIN INJ 1,250 MG in SODIUM CHLOR 0.9% 250 ML INJ 250 ML IV SCH (10:00)
--- NOTE | 2017-01-02 10:05 | HHI.PR ---
Subjective Remarks Follow for delirium and agitation Patient was agitated last night were Precedex was restarted and he was put in4 point restraints due to harm to himself. Nurses at the bedside during interview. Patient is on precedex. Per nurse she is weaning him off the Precedex. No other complaints. Objective Vitals Vital Signs Date Time Temp Pulse Resp B/P Pulse Ox O2 Delivery O2 Flow Rate FiO2 01/02/17 09:26 97 Nasal Cannula 2.00 01/02/17 06:00 51 01/02/17 04:00 58 01/02/17 04:00 97.7 58 177/88 95 01/02/17 02:00 45 01/02/17 00:00 98.5 52 159/85 95 01/02/17 00:00 52 01/01/17 22:00 94 01/01/17 20:00 66 01/01/17 20:00 98.5 66 33 137/84 97 01/01/17 18:00 72 01/01/17 16:00 99.2 68 29 143/90 94 01/01/17 16:00 68 01/01/17 15:00 74 38 157/74 94 01/01/17 14:00 66 01/01/17 14:00 66 32 136/91 93 01/01/17 13:00 78 29 131/84 92 01/01/17 12:00 99.4 62 32 135/74 92 01/01/17 12:00 62 01/01/17 11:00 68 22 121/77 93 01/01/17 10:00 67 31 129/65 96 01/01/17 10:00 67 I/O 01/01/17 01/01/17 01/01/17 01/02/17 01/02/17 01/02/17 07:00 15:00 23:00 07:00 15:00 23:00 Intake Total 678 ml 1348 ml 1275 ml 252 ml Output Total 380 ml 860 ml 800 ml 1900 ml Balance 298 ml 488 ml 475 ml -1648 ml Intake Oral 444 ml 240 ml 0 ml IV Total 678 ml 904 ml 1035 ml 252 ml Output Urine Total 380 ml 860 ml 800 ml 1900 ml # Bowel Movements 3 0 0 Result Diagram: 01/02/17 0326 01/02/17 0326 Objective Remarks GENERAL: in NAD and sleeping NECK: Supple, trachea midline. No JVD or lymphadenopathy. CARDIOVASCULAR: Regular rate and rhythm without murmurs, gallops, or rubs. RESPIRATORY: Breath sounds equal bilaterally. No accessory muscle use. GASTROINTESTINAL: Abdomen soft, non-tender, nondistended. NEURO: Patient does respond to noxious stimuli but falls back to sleep. Medications and IVs Current Medications Acetaminophen 650 mg 650 mg ONCE ONCE RECTAL Last administered on 12/31/16 11: 57; Start 12/31/16 at 11:30; Stop 12/31/16 at 11:36; Status DC Ceftriaxone Sodium 2000 mg/ Sodium Chloride 100 ml @ 200 mls/hr ONCE STAT IV Last administered on 12/31/16 11:57; Start 12/31/16 at 11:27; Stop 12/31/16 at 11: 56; Status DC Vancomycin HCl 1000 mg/Sodium Chloride 250 ml @ 250 mls/hr ONCE ONCE IV Last administered on 12/31/16 13:47; Start 12/31/16 at 11:30; Stop 12/31/16 at 12:29; Status DC Sodium Chloride 1,000 ml @ 999 mls/hr BOLUS ONCE IV Last administered on 13:47; Start 12/31/16 at 12:00; Stop 12/31/16 at 13:00; Status DC Sodium Chloride (NS 1000 ml Inj) 1,000 ml @ 999 mls/hr BOLUS ONCE IV Last administered on 12/31/16 13:47; Start 12/31/16 at 12:00; Stop 12/31/16 at 13:00; Status DC Sodium Chloride (NS Flush) 2 ml UNSCH PRN IV FLUSH FLUSH AFTER USING IV ACCESS Last administered on 01/02/17 08:32; Start 12/31/16 at 13:45 Sodium Chloride (NS Flush) 2 ml BID IV FLUSH Last administered on 01/02/17 08: 31; Start 12/31/16 at 21:00 Folic Acid 1 mg 1 mg DAILY PO Last administered on 01/01/17 08:42; Start at 09:00; Stop 01/06/17 at 08:59 Multivitamins 10 ml/Folic Acid 1 mg/Sodium Chloride 510.2 ml @ 125 mls/hr Q24H IV Last administered on 01/01/17 16:53; Start 12/31/16 at 15:00; Stop 01/05/17 at 14:59 Thiamine HCl/ Sodium Chloride (Thiamine Inj/NS Inj) 101 ml @ 100 mls/hr Q24H IV Last administered on 01/01/17 15:37; Start 12/31/16 at 16:00; Stop 01/03/17 at 15:59 Thiamine HCl (Vitamin B1) 100 mg DAILY PO ; Start 01/04/17 at 09:00 Flumazenil (Romazicon Inj) 0.2 mg Q1M PRN IV PUSH SEE LABEL COMMENTS; Start 12/31/16 at 13:45 Lorazepam (Ativan) 1 mg Q4H PRN PO CIWA 8 - 10; Start 12/31/16 at 13:45 Lorazepam (Ativan Inj) 1 mg Q4H PRN IV PUSH CIWA 8 - 10 Last administered on 23:49; Start 12/31/16 at 13:45 Lorazepam (Ativan) 2 mg Q2H PRN PO CIWA 11-14; Start 12/31/16 at 13:45 Lorazepam (Ativan Inj) 2 mg Q2H PRN IV PUSH CIWA 11-14 Last administered on 01/02 02:43; Start 12/31/16 at 13:45 Lorazepam (Ativan Inj) 2 mg Q1H PRN IV PUSH CIWA 15-20; Start 12/31/16 at 13:45 Lorazepam (Ativan Inj) 2 mg Q15M PRN IV PUSH CIWA > 20 Last administered on 01/02 03:31; Start 12/31/16 at 13:45 Enoxaparin Sodium 40 mg 40 mg Q24H SQ Last administered on 01/02/17 08:32; Start 01/01/17 at 08:00 Levetriacetam 500 mg/Sodium Chloride 105 ml @ 420 mls/hr Q12HR IV Last administered on 01/02/17 08:31; Start 12/31/16 at 21:00 Levetriacetam 500 mg/Sodium Chloride 105 ml @ 420 mls/hr BOLUS ONCE IV ; Start 12/31/16 at 14:30; Stop 12/31/16 at 14:44; Status DC Sodium Chloride (NS 1000 ml Inj) 1,000 ml @ 84 mls/hr [id number] IV Last administered on 01/01/17 16:53; Start 12/31/16 at 15:00 Sodium Chloride (NS Flush) 2 ml UNSCH PRN IV FLUSH FLUSH AFTER USING IV ACCESS ; Start 12/31/16 at 14:00 Sodium Chloride (NS Flush) 2 ml BID IV FLUSH Last administered on 01/02/17 08: 31; Start 12/31/16 at 21:00 Acetaminophen (Tylenol) 650 mg Q6H PRN PO FEVER >101F; Start 12/31/16 at 14:00 Acetaminophen/ Hydrocodone Bitart ([place] 5-325 Mg) 1 tab Q4H PRN PO PAIN SCALE 1 TO 5 Last administered on 01/01/17 20:37; Start 12/31/16 at 14:00 Morphine Sulfate (Morphine Inj) 2 mg Q2H PRN IV PAIN SCALE 6 TO 10; Start at 14:00 Pantoprazole Sodium (Protonix Inj) 40 mg DAILY IV Last administered on 08:31; Start 01/01/17 at 09:00 Artificial Tears (Tears Naturale Opth Soln) 1 drop TID EACH EYE Last administered on 01/02/17 08:32; Start 12/31/16 at 18:00 Ondansetron HCl (Zofran Inj) 4 mg Q6H PRN IV NAUSEA OR VOMITING; Start 12/31/16 at 14:00 Albuterol/ Ipratropium (Duoneb Neb) 1 ampule Q6HR NEB INH Last administered on 01/02/17 09:26; Start 12/31/16 at 16:00 Albuterol Sulfate (Albuterol Neb) 2.5 mg Q2HR NEB PRN INH SOB/WHEEZING Last administered on 01/01/17 23:39; Start 12/31/16 at 14:00 Miscellaneous Information 1 Q361D XX ; Start 12/31/16 at 14:00 Chlorhexidine Gluconate (Chlorhexidine 2% Cloth) 3 pack Taper DAILY@04 TOP Last administered on 01/02/17 06:08; Start 01/01/17 at 04:00; Stop 12/28/17 at 03: 59 Chlorhexidine Gluconate (Chlorhexidine 2% Cloth) 3 pack UNSCH PRN TOP HYGIENIC CARE; Start 12/31/16 at 14:00 Senna/Docusate Sodium (Marisabel-Colace) 1 tab BID PO ; Start 12/31/16 at 21:00 Magnesium Hydroxide (Milk Of Magnnadege Liq) 30 ml Q12H PRN PO MILD - MODERATE CONSTIPATION; Start 12/31/16 at 14:00 Sennosides (Senokot) 17.2 mg Q12H PRN PO MODERATE - SEVERE CONSTIPATION; Start 12/31/16 at 14:00 Bisacodyl (Dulcolax Supp) 10 mg DAILY PRN RECTAL SEVERE CONSITIPATION; Start at 14:00 Lactulose 30 ml 30 ml DAILY PRN PO SEVERE CONSITIPATION; Start 12/31/16 at 14:00 Potassium Chloride 100 ml @ 50 mls/hr Q2H PRN IV For Potassium 2.8 - 3.2 mEq/L ; Start 12/31/16 at 14:00 Potassium Chloride (KCl 20 Meq Premix Inj) 100 ml @ 50 mls/hr Q2H PRN IV For Potassium 2.8 - 3.2 mEq/L; Start 12/31/16 at 14:00 Potassium Bicarb/ Potassium Chloride 50 meq 50 meq UNSCH PRN PO For Potassium 3.3 - 3.5 mEq/L; Start 12/31/16 at 14:00 Potassium Chloride 100 ml @ 25 mls/hr UNSCH PRN IV For Potassium 3.3 - 3.5 mEq /L; Start 12/31/16 at 14:00 Potassium Chloride 100 ml @ 50 mls/hr Q2H PRN IV For Potassium 3.3 - 3.5 mEq/L ; Start 12/31/16 at 14:00 Magnesium Sulfate/ Sodium Chloride (Magnesium Sulfate Inj/NS Inj) 100 ml @ 50 mls/hr UNSCH PRN IV For Magnesium 0.9 - 1.1 mg/dL; Start 12/31/16 at 14:00 Magnesium Oxide 800 mg 800 mg UNSCH PRN PO For Magnesium 1.2 - 1.6 mg/dL; Start 12/31/16 at 14:00 Magnesium Sulfate/ Sodium Chloride (Magnesium Sulfate Inj/NS Inj) 100 ml @ 50 mls/hr UNSCH PRN IV For Magnesium 1.2 - 1.6 mg/dL; Start 12/31/16 at 14:00 Potassium Phosphate 2000 mg 2,000 mg Q4H PRN PO For Phosphorus < 2.5 mg/dL; Start 12/31/16 at 14:00 Sodium Phosphate/ Sodium Chloride (Sodium Phosphate Inj/NS 250 ml Inj) 250 ml @ 42 mls/hr UNSCH PRN IV For Phosphorus < 2.5 mg/dL; Start 12/31/16 at 14:00 Potassium Phosphate 2000 mg 2,000 mg UNSCH PRN PO/TUBE SEE LABEL COMMENTS; Start 12/31/16 at 14:00 Potassium Phosphate/Sodium Chloride (Potassium Phosphate Inj/NS 250 ml Inj) 260 ml @ 42 mls/hr UNSCH PRN IV SEE LABEL COMMENTS Last administered on 01/02/17 01:00; Start 12/31/16 at 14:00 Dextrose (D50w (Vial) Inj) 50 ml UNSCH PRN IV HYPOGLYCEMIA-SEE COMMENTS; Start 12/31/16 at 14:00 Glucagon (Glucagon Inj) 1 mg UNSCH PRN OTHER HYPOGLYCEMIA-SEE COMMENTS; Start 12/31/16 at 14:00 Insulin Human Regular 1 1 Q6HR SQ Last administered on 01/02/17 06:00; Start at 18:00 Ceftriaxone Sodium 2000 mg/ Sodium Chloride 100 ml @ 200 mls/hr Q12H IV Last administered on 01/01/17 23:48; Start 01/01/17 at 00:00 Pharmacy Profile Note 0 ml @ 0 mls/hr UNSCH OTHER ; Start 12/31/16 at 14:00 Levetriacetam/ Sodium Chloride (Keppra Inj/NS Inj) 105 ml @ 420 mls/hr BOLUS ONCE IV Last administered on 12/31/16 15:01; Start 12/31/16 at 14:00; Stop at 14:14; Status DC Lorazepam 1 mg 1 mg ONCE ONCE IV PUSH Last administered on 12/31/16 15:02; Start 12/31/16 at 14:00; Stop 12/31/16 at 14:14; Status DC Acyclovir Sodium 650 mg/Sodium Chloride 100 ml @ 100 mls/hr Q8H IV Last administered on 01/02/17 06:09; Start 12/31/16 at 15:00 Vancomycin HCl/ Sodium Chloride (Vancomycin Inj/ NS 250 ml Inj) 250 ml @ 250 mls/hr Q12H IV Last administered on 01/02/17 06:08; Start 01/01/17 at 02:00; Stop 01/02/17 at 09:25; Status DC Miscellaneous Information SPECIFIC LAB TO BE DRAWN:VANCOMYCIN TROUGH DATE TO... ONCE ONCE .XX ; Start 01/02/17 at 01:45; Stop 01/02/17 at 01:46; Status DC Dexmedetomidine HCl 200 mcg 200 mcg STK-MED ONCE .ROUTE Last administered on 22:09; Start 01/01/17 at 22:06; Stop 01/01/17 at 22:07; Status DC Dexmedetomidine HCl 200 mcg/ Sodium Chloride 52 ml @ 0 mls/hr TITRATE IV ; Start 01/01/17 at 22:15; Stop 01/01/17 at 22:31; Status DC Dexmedetomidine HCl 1000 mcg/ Sodium Chloride 250 ml @ 0 mls/hr TITRATE IV Last administered on 01/01/17 23:28; Start 01/01/17 at 22:45 Vancomycin HCl/ Sodium Chloride (Vancomycin Inj/ NS 250 ml Inj) 262.5 ml @ 250 mls/hr Q8H IV ; Start 01/02/17 at 10:00 Miscellaneous Information SPECIFIC LAB TO BE DRAWN:VANCOMYCIN TROUGH DATE TO... ONCE ONCE .XX ; Start 01/03/17 at 09:45; Stop 01/03/17 at 09:46 A/P Problem List: (1) Seizure disorder ICD Code: G40.909 Status: Acute (2) Bipolar 1 disorder ICD Code: F31.9 Status: Acute (3) Alcoholism ICD Code: F10.20 Status: Acute (4) Pyrexia ICD Code: R50.9 Status: Acute (5) Altered mental status, unspecified ICD Code: R41.82 Status: Acute (6) Macrocytosis without anemia ICD Code: D75.89 Status: Acute (7) Thrombocytopenia ICD Code: D69.6 Status: Acute (8) Hyponatremia ICD Code: E87.1 Status: Acute (9) Hyperglycemia ICD Code: R73.9 Status: Acute (10) Elevated AST (SGOT) ICD Code: R74.0 Status: Acute (11) Depression ICD Code: F32.9 Status: Acute (12) Polysubstance abuse ICD Code: F19.10 Status: Acute (13) Tobacco abuse ICD Code: Z72.0 Status: Acute (14) Tetrahydrocannabinol (THC) use disorder, mild, abuse ICD Code: F12.10 Status: Acute (15) COPD (chronic obstructive pulmonary disease) ICD Code: J44.9 Status: Acute (16) Acute respiratory acidosis ICD Code: E87.2 Status: Acute (17) Hepatitis C ICD Code: B19.20 Status: Chronic (18) Acute hypoxemic respiratory failure ICD Code: J96.01 Status: Acute (19) SIRS (systemic inflammatory response syndrome) ICD Code: R65.10 Status: Acute Assessment and Plan Acute delirium -May be secondary to alcoholic withdrawal. -CT head revealed retained hardware left mandible/right maxillary region from prior trauma, otherwise no acute intracranial findings. -Due to altered mental status and fever patient had a meningitis workup which was essentially negative. Neurologist was consulted in regards to this and which patient was cleared by neurologist. -CSF glucose 112/MBS is 227 and CSF protein 48.3 which is slightly elevated, Clear CSF with 3 WBC -Patient is on acyclovir, Rocephin, and vancomycin treated. Clear for meningitis. Workup essentially negative. Cultures are all negative. We'll discontinue all antibiotics and antiviral medication. Monitor off these medication. -Seizure precaution/DT withdrawal protocol -Patient did have delirium last night most likely due to alcoholic withdrawal. He is on the CIWA protocol. Wean off of Precedex since patient is too sedated. Will use CIWA protocol and Haldol when necessary. -Continue Thiamine, folate, multivitamin daily -Due to agitation harm to patient we will put in restraints. Polysubstance abuse UDS- Cannabinoids -Will educate patient once he is more alert. COPD, asymptomatic -Oxygen to keep sat > 92% -Albuterol/Atrovent nebulizers every 6 hours with albuterol realizes every 2 hours when necessary dyspnea -CXR: No acute disease Tobacco abuse -Will educate once patient more alert. History of hepatitis C -unknown genotype/treatment. Noncompliance. Follow-up as outpatient. Hyponatremia -Resolved. -On NS@84ml/hr Prophylaxis - GI - pantoprazole - DVT - SCD/enoxaparin Discharge Planning Patient is currently on Precedex gtt. Will wean. Will monitor 1 more day in [facility] and he he does well off Precedex can transfer out of the [facility]. Problem Qualifiers (1) Pyrexia: Qualified Code: R50.2 - Drug-induced fever (2) Altered mental status, unspecified: Qualified Code: R41.82 - Altered mental status, unspecified altered mental status type (3) Depression: Qualified Code: F33.9 - Episode of recurrent major depressive disorder, unspecified depression episode severity (4) COPD (chronic obstructive pulmonary disease): Qualified Code: J44.9 - Chronic obstructive pulmonary disease, unspecified COPD type (5) Hepatitis C: Qualified Code: B19.20 - Hepatitis C virus infection without hepatic coma, unspecified chronicity Lucille Samaniego MD Jan 02, 2017 10:05
[2017-01-02 11:27] LABS: POTASSIUM 3.2 MEQ/L (3.5-5.1)
--- NOTE | 2017-01-02 12:59 | HHI.CCPN ---
Subjective Remarks/Hospital Course This is a middle-aged male. Name possibly Dar Knox. He acknowledges. This is on his bottle of Levetiracetam. He acknowledges being approximately 51 years old. According to records, past medical history of EtOH , hepatitis C bipolar disorder, tobaccoism, THC/polysubstance abuse, COPD and alcoholism treatment 12-18 beers daily. He was found by an acquaintance unresponsive and febrile. His transported to [facility] with questionable seizure activity noted in route. At this facility, patient was noted to be febrile temperature greater than 102. CT head showed plating in the right maxillary sinus region. He also has history of left mandible fracture with abscess formation after he left AMA. 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 Patient has a macrocytosis, thrombocytopenia, elevated AST and elevated PTT. Sodium is 132. Remainder baseline laboratories unremarkable. Lumbar puncture was clear to according to ED physician. Results still pending. Received 1 g vancomycin and 2 g ceftriaxone IV. Noted toxicology screen and multiple laboratory still pending at time of dictation. When I evaluated patient, ABG showed pH 7.2, PCO2 60, PO2 177. Patient was taken up nonrebreather mask is currently on a Venturi mask. Currently saturation 100%. Patient came more awake and alert. States he drinks alcohol and recently did methamphetamines. He states he did not inject. No track valdivia are appreciated on his arms. 01/01 No events overnight. Patient is awake and alert on room air oxygen when seen. Afebrile. LP yesterday showed clear CSF. 01/02 Patient was agitated overnight placed on Precedex drip. Afebrile. Objective Vital Signs Date Time Temp Pulse Resp B/P Pulse Ox O2 Delivery O2 Flow Rate FiO2 01/02/17 12:00 99.7 56 148/90 97 01/02/17 09:26 Nasal Cannula 2.00 01/01/17 20:00 33 12/31/16 12:24 95 Intake and Output 01/01/17 01/01/17 01/02/17 08:00 16:00 00:00 Intake Total 678 ml 1348 ml 1275 ml Output Total 380 ml 860 ml 800 ml Balance 298 ml 488 ml 475 ml Result Diagram: 01/02/17 0326 01/02/17 1050 Other Results Laboratory Tests Test 01/01/17 01/02/17 01/02/17 19:37 03:26 10:50 Potassium Level 3.0 MEQ/L 3.3 MEQ/L 3.2 MEQ/L Phosphorus Level 1.0 MG/DL 2.5 MG/DL 1.9 MG/DL White Blood Count 5.3 TH/MM3 Red Blood Count 3.91 MIL/MM3 Hemoglobin 13.9 GM/DL Hematocrit 38.9 % Mean Corpuscular Volume 99.4 FL Mean Corpuscular Hemoglobin 35.7 PG Mean Corpuscular Hemoglobin 35.9 % Concent Red Cell Distribution Width 13.4 % Platelet Count 131 TH/MM3 Mean Platelet Volume 8.1 FL Neutrophils (%) (Auto) 64.7 % Lymphocytes (%) (Auto) 24.6 % Monocytes (%) (Auto) 10.3 % Eosinophils (%) (Auto) 0.1 % Basophils (%) (Auto) 0.3 % Neutrophils # (Auto) 3.4 TH/MM3 Lymphocytes # (Auto) 1.3 TH/MM3 Monocytes # (Auto) 0.5 TH/MM3 Eosinophils # (Auto) 0.0 TH/MM3 Basophils # (Auto) 0.0 TH/MM3 CBC Comment DIFF FINAL Differential Comment Sodium Level 139 MEQ/L Chloride Level 101 MEQ/L Carbon Dioxide Level 29.1 MEQ/L Anion Gap 9 MEQ/L Blood Urea Nitrogen 4 MG/DL Creatinine 0.61 MG/DL Estimat Glomerular Filtration 138 ML/MIN Rate Random Glucose 100 MG/DL Calcium Level 8.6 MG/DL Magnesium Level 2.1 MG/DL Vancomycin Level Trough 2.8 MCG/ML Imaging Last Impressions Head CT 12/31/16 1127 Signed Impressions: Service Date/Time: Saturday, December 31, 2016 12:29 - CONCLUSION: 1. No acute intracranial abnormality is identified. 2. Paranasal sinus mucoperiosteal thickening. Dar Pham MD Chest X-Ray 12/31/16 1127 Signed Impressions: Service Date/Time: Saturday, December 31, 2016 11:52 - CONCLUSION: No acute cardiopulmonary abnormality is identified. Dar Pham MD Objective Remarks GENERAL: Middle-aged disheveled male lying in bed in [facility] SKIN: Warm and dry. No rash. Bilateral upper extremity tattoos. HEAD: Prior scars left mandible from traumatic brain injury/fracture/history of right maxillary ORIF EYES: Pupils equal and round about 2 mm bilaterally and reactive. No scleral icterus. No injection or drainage. ENT: No nasal bleeding or discharge. Mucous membranes pink and moist. NECK: Trachea midline. No JVD. CARDIOVASCULAR: Regular rate and rhythm. S1, S2. No S4. Without murmur RESPIRATORY: Diminished breath sounds throughout. GASTROINTESTINAL: Abdomen soft, non-tender, nondistended. Hypoactive bowel sounds MUSCULOSKELETAL: Extremities without significant peripheral edema. No obvious deformities. NEUROLOGICAL: Awake and alert A/P Assessment and Plan Neuro/Psych: Acute delirium- improving Seizure disorder NOS History of TBI age 14 History of left mandible fracture 2014 Bipolar disorder NOS EtOH THC use History of polysubstance abuse History of suicide ideation Placed on Peridex drip overnight for agitation wean off and monitor neuro status CT head revealed retained hardware left mandible/right maxillary region from prior trauma, otherwise no acute intracranial findings CSF glucose 112/MBS is 227 and CSF protein 48.3 which is slightly elevated Clear CSF with 3 WBC Seizure precaution/DT withdrawal protocol CIWA initiated see orders Thiamine, folate, multivitamin daily UDS- Cannabinoids Neuro- Dr. Kee- no further intervention from neuro standpoint CV: Monitor HR and BP keep MAP>65mmhg Resp: COPD Tobaccoism 1.5 packs per day Oxygen to keep sat > 92% Bronchodilators CXR: No acute disease Tobacco cessation will be encouraged when appropriate GI: Elevated AST History pancreatitis History of hepatitis C unknown genotype/treatment On PO heart healthy diet Pantoprazole for GI prophylaxis Docusate sodium/senna 1 tablet twice a day for bowel regimen : Hyponatremia Monitor renal function, I/O's, electrolytes replacement per protocol. Will need K, Phos replacement today On NS@84ml/hr Endo: Hyperglycemia SSI with Novolin r to maintain euglycemia with Accu-Cheks every 6 hours Heme: Macrocytosis without anemia Elevated PTT Monitor CBC daily. Follow trends ID: Off abx monitor for signs of infections ( Fever, WBC) LP: clear CSF, 3 WBC, fluid cx; No growth Follow up on CSF cx, HSV DNA PCR negative Follow up on blood and urine cxs.. NGTD Influenza Ag negative MSK: PT evaluate and treat for range of motion Access - Utilize peripheral IV. Prophylaxis - GI - pantoprazole - DVT - SCD/enoxaparin Level 2 Filiberto Zhou MD Jan 02, 2017 12:59
[2017-01-02] MEDS: SODIUM CHLOR 0.9% 1000 ML INJ 1,000 ML IV SCH ×2 (13:46→23:36)
[2017-01-02] MEDS: THIAMINE INJ 100 MG in SODIUM CHLORIDE 0.9% INJ 100 ML IV SCH (14:30)
[2017-01-02] MEDS: MULTIVITAMIN INJ 10 ML, FOLIC ACID INJ 1 MG in SODIUM CHLORID 0.9% 500 ML INJ 500 ML IV SCH (15:08)
[2017-01-02] MEDS: DEXMEDETOMIDINE INJ 1,000 MCG in SODIUM CHLOR 0.9% 250 ML INJ 240 ML IV SCH ×2 (15:08→23:36)
--- NOTE | 2017-01-02 19:35 | MG ---
cc: SANTIAGO MONTEZ M.D. Lab No: [id number] Date: 12/31/16 Age: 51 Sex: M Race: AKA: Dar Harley [id number] TECHNIQUE This is a 17 channel EEG. DESCRIPTION Background rhythm reveals mild slowing in the theta frequency about 6 Hz, amplitude is about 10-20 microvolts. There is some muscle artifact present. There is later in the tracing a modest alpha rhythm. No lateralizing features are identified. There are no epileptiform discharges. Photic is done with a poor driving response. INTERPRETATION Mildly abnormal study consistent with a mild encephalopathy versus drowsiness. MD SILVIO Hutchison/JERRY /4:18 PM /7:24 PM
[2017-01-02] MEDS: hydrALAZINE HCL 20 MG/ML VIAL IV PUSH PRN (21:58)
[2017-01-02] MEDS ORDERED: NITROGLYCERIN 2% OINT 1 GM PACKET TOPICAL PRN (22:00)
[2017-01-03] VITALS (19 sets, daily range): BP systolic 101–169; BP diastolic 74–98; PULSE 56–110; RESP 23–47; TEMP 98.1–100.1; O2SAT 94–98
[2017-01-03] MEDS: LORazepam 2 MG/ML VIAL IV PUSH PRN ×8 (00:23→15:14)
[2017-01-03 00:46] LABS: POTASSIUM 3.1 MEQ/L (3.5-5.1)
[2017-01-03] MEDS: POTASSIUM CHLOR 20 MEQ PREMIX 100 ML IV PRN ×3 (01:40→15:45)
[2017-01-03] MEDS: POTASSIUM PHOSPHATE INJ 30 MMOL in SODIUM CHLOR 0.9% 250 ML INJ 250 ML IV PRN (02:17)
[2017-01-03] MEDS: CHLORHEXIDINE GLUCONATE 2 % 1 PACK (2 CLOTHS) TOP SCH ×2 (04:09→20:27)
[2017-01-03] MEDS: RESP: ALBUTEROL 2.5 MG/IPRATROPIUM 0.5 MG NEB (SCH) INH ×4 (04:24→20:59)
[2017-01-03] MEDS: INSULIN NovoLIN REGULAR SUPPLEMENTAL SCALE SQ SCH ×4 (06:00→18:00)
[2017-01-03] MEDS: hydrALAZINE HCL 20 MG/ML VIAL IV PUSH PRN (06:19)
[2017-01-03] MEDS: DEXMEDETOMIDINE INJ 1,000 MCG in SODIUM CHLOR 0.9% 250 ML INJ 240 ML IV SCH (07:56)
[2017-01-03] MEDS: ENOXAPARIN SODIUM 40 MG/0.4 ML SYRINGE SQ SCH (07:57)
[2017-01-03] MEDS: levETIRAcetam INJ 500 MG in SODIUM CHLORIDE 0.9% INJ 100 ML IV SCH ×2 (08:01→21:43)
[2017-01-03] MEDS: PANTOPRAZOLE SODIUM 40 MG VIAL IV SCH (08:02)
[2017-01-03] MEDS: SODIUM CHLORIDE 0.9% FLUSH 10 ML FLUSH IV FLUSH SCH ×2 (08:02→21:00)
[2017-01-03] MEDS: FOLIC ACID 1 MG TAB PO SCH (09:00)
[2017-01-03] MEDS: DOCUSATE SODIUM 50 MG/SENNA 8.6 MG TAB PO SCH ×2 (09:00→20:26)
[2017-01-03] MEDS: ARTIFICIAL TEARS OPTH SOLN 15 ML BTL EACH EYE SCH ×3 (09:00→18:53)
[2017-01-03] MEDS ORDERED: PHARMACY ORDERED LAB ONE (09:45)
[2017-01-03] MEDS: NICOTINE 14 MG/24 HR PATCH T-DERMAL SCH (11:17)
[2017-01-03] MEDS: SODIUM CHLOR 0.9% 1000 ML INJ 1,000 ML IV SCH ×2 (12:49→21:43)
[2017-01-03] MEDS: MULTIVITAMIN INJ 10 ML, FOLIC ACID INJ 1 MG in SODIUM CHLORID 0.9% 500 ML INJ 500 ML IV SCH (14:23)
--- NOTE | 2017-01-03 14:39 | HHI.CCPN ---
Subjective Remarks/Hospital Course This is a middle-aged male. Name possibly Dar Knox. He acknowledges. This is on his bottle of Levetiracetam. He acknowledges being approximately 51 years old. According to records, past medical history of EtOH , hepatitis C bipolar disorder, tobaccoism, THC/polysubstance abuse, COPD and alcoholism treatment 12-18 beers daily. He was found by an acquaintance unresponsive and febrile. His transported to [facility] with questionable seizure activity noted in route. At this facility, patient was noted to be febrile temperature greater than 102. CT head showed plating in the right maxillary sinus region. He also has history of left mandible fracture with abscess formation after he left AMA. 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 Patient has a macrocytosis, thrombocytopenia, elevated AST and elevated PTT. Sodium is 132. Remainder baseline laboratories unremarkable. Lumbar puncture was clear to according to ED physician. Results still pending. Received 1 g vancomycin and 2 g ceftriaxone IV. Noted toxicology screen and multiple laboratory still pending at time of dictation. When I evaluated patient, ABG showed pH 7.2, PCO2 60, PO2 177. Patient was taken up nonrebreather mask is currently on a Venturi mask. Currently saturation 100%. Patient came more awake and alert. States he drinks alcohol and recently did methamphetamines. He states he did not inject. No track valdivia are appreciated on his arms. 01/01 No events overnight. Patient is awake and alert on room air oxygen when seen. Afebrile. LP yesterday showed clear CSF. 01/02 Patient was agitated overnight placed on Precedex drip. Afebrile. 01/03 patient is on maximum Precedex 1.4 mg per kg per hour. On lightening sedation he becomes agitated. I have asked that indicated now and then to reduce the need for Precedex. If pt can take by mouth Will start scheduled Librium Objective Vital Signs Date Time Temp Pulse Resp B/P Pulse Ox O2 Delivery O2 Flow Rate FiO2 01/03/17 14:00 71 01/03/17 12:00 99.7 24 120/78 95 01/03/17 09:22 21 01/02/17 09:26 Nasal Cannula 2.00 Intake and Output 01/02/17 01/02/17 01/03/17 08:00 16:00 00:00 Intake Total 252 ml 1144 ml 1113 ml Output Total 1900 ml 1850 ml 800 ml Balance -1648 ml -706 ml 313 ml Result Diagram: 01/02/17 0326 01/02/17 2357 Other Results Microbiology Date/Time Procedure Status Source Growth 12/31/16 17:46 Influenza Types A,B Antigen (FLORA) - Final Complete Nasal Washing NEGATIVE FOR FLU A AND B ANTIGEN.... Imaging Last Impressions Head CT 12/31/16 1127 Signed Impressions: Service Date/Time: Saturday, December 31, 2016 12:29 - CONCLUSION: 1. No acute intracranial abnormality is identified. 2. Paranasal sinus mucoperiosteal thickening. Dar Pham MD Chest X-Ray 12/31/161126 Signed Impressions: Service Date/Time: Saturday, December 31, 2016 11:52 - CONCLUSION: No acute cardiopulmonary abnormality is identified. Dar Pham MD Objective Remarks GENERAL: Middle-aged disheveled male lying in bed gets agitated on lightening sedation SKIN: Warm and dry. No rash. Bilateral upper extremity tattoos. HEAD: Prior scars left mandible from traumatic brain injury/fracture/history of right maxillary ORIF EYES: Pupils equal and round about 2 mm bilaterally and reactive. No scleral icterus. No injection or drainage. ENT: No nasal bleeding or discharge. Mucous membranes pink and moist. NECK: Trachea midline. No JVD. CARDIOVASCULAR: Tachycardic rate and rhythm. S1, S2. No S4. Without murmur RESPIRATORY: Diminished breath sounds throughout. GASTROINTESTINAL: Abdomen soft, non-tender, nondistended. Hypoactive bowel sounds MUSCULOSKELETAL: Extremities without significant peripheral edema. No obvious deformities. NEUROLOGICAL: Sedated on Precedex but wakes up. Moves all extremities equally. Not following commands on heavy sedation A/P Assessment and Plan Neuro/Psych: Acute delirium Alcohol withdrawal syndrome Seizure disorder History of TBI age 14 History of left mandible fracture 2015 Bipolar disorder NOS EtOH THC use, methamphetamine use History of polysubstance abuse History of suicide ideation Neuro: On Peridex drip agitation wean. Use PRN Haldol and wean off Precedex as tolerated CT head revealed retained hardware left mandible/right maxillary region from prior trauma, otherwise no acute intracranial findings CSF glucose 112/MBS is 227 and CSF protein 48.3 which is slightly elevated Clear CSF with 3 WBC Seizure precaution/DT withdrawal protocol CIWA initiated see orders. Also start scheduled Librium Thiamine, folate, multivitamin daily UDS- Cannabinoids Neuro- Dr. Kee- no further intervention from neuro standpoint CV: Monitor HR and BP keep MAP>65mmhg Resp: COPD Tobaccoism 1.5 packs per day Oxygen to keep sat > 90% Bronchodilators CXR: No acute disease Tobacco cessation will be encouraged when appropriate GI: Elevated AST History pancreatitis History of hepatitis C unknown genotype/treatment On PO heart healthy diet as tolerated Pantoprazole for GI prophylaxis Docusate sodium/senna 1 tablet twice a day for bowel regimen : Hyponatremia Monitor renal function, I/O's, electrolytes replacement per protocol. On NS@84ml/hr Endo: Hyperglycemia SSI with Novolin r to maintain euglycemia with Accu-Cheks every 6 hours Heme: Macrocytosis without anemia Elevated PTT Monitor CBC daily. Follow trends ID: Off abx monitor for signs of infections ( Fever, WBC) LP: clear CSF, 3 WBC, fluid cx; No growth Follow up on CSF cx, HSV DNA PCR negative Follow up on blood and urine cxs.. NGTD Influenza Ag negative MSK: PT evaluate and treat for range of motion Access - Utilize peripheral IV. Prophylaxis - GI - pantoprazole - DVT - SCD/enoxaparin Level 3 Jaquelin Dodge MD Jan 03, 2017 14:39
[2017-01-03 14:55] LABS: AUTOMATED NEUTROPHIL # 3.3 TH/MM3 (1.8-7.7); BASOPHIL % 0.4 % (0.0-2.0); EOSINOPHIL % 0.6 % (0.0-4.0); HEMATOCRIT 44.2 % (39.0-51.0); HEMO FLAGS DIFF FINAL; LYMPH % 20.9 % (9.0-44.0); LYMPHOCYTE # 1.1 TH/MM3 (1.0-4.8); MEAN CELL VOLUME 101.2 FL (80.0-100.0); MEAN CORPUSCULAR HEMOGLOBIN 34.8 PG (27.0-34.0); MEAN CORPUSCULAR HGB CONC 34.4 % (32.0-36.0); MONO % 13.1 % (0.0-8.0); PLATELET COUNT 161 TH/MM3 (150-450); RED BLOOD COUNT 4.37 MIL/MM3 (4.50-5.90); RED CELL DISTRIBUTION WIDTH 13.3 % (11.6-17.2); WHITE BLOOD COUNT 5.1 TH/MM3 (4.0-11.0)
[2017-01-03] MEDS: chlordiazePOXIDE 25 MG CAP PO SCH ×2 (15:13→21:43)
[2017-01-03 15:15] LABS: POTASSIUM 3.2 MEQ/L (3.5-5.1)
[2017-01-03 15:17] LABS: ALT (GPT) 31 U/L (12-78); ANION GAP 10 MEQ/L (5-15); AST (GOT) 36 U/L (15-37); BICARBONATE 22.5 MEQ/L (21.0-32.0); BLOOD UREA NITROGEN 7 MG/DL (7-18); CHLORIDE 105 MEQ/L (98-107); GLOMERULAR FILTRATION RATE 166 ML/MIN (>89); MAGNESIUM 1.8 MG/DL (1.5-2.5); POTASSIUM 3.2 MEQ/L (3.5-5.1); SODIUM (NA) 137 MEQ/L (136-145)
[2017-01-03 15:21] LABS: ALKALINE PHOSPHATASE 77 U/L (45-117)
[2017-01-03] MEDS: MORPHINE SULFATE 4 MG/ML INJ IV PRN (17:06)
[2017-01-03] MEDS ORDERED: HALOPERIDOL LACTATE 5 MG/ML AMP IV PRN (18:00)
--- NOTE | 2017-01-03 19:14 | HHI.PR ---
Review/Management Daily Summary doing well today, following commands and eating partially oriented moves 4 limbs well no seizures resolving encephalopathy Subjective Subjective Comments No acute events reported No headache Active Medications Current Medications Medications (Trade) Dose Ordered Sig/Saulo Route Start Time Stop Time Status Last Admin Folic Acid 1 mg 1 mg DAILY PO 01/01/17 09:00 01/06/17 08:59 01/01/17 08:42 (Mvi-12 Inj/ Folvite Inj/NS 500 ml Inj) 510.2 ml @ 125 mls/hr Q24H IV 12/31/16 15:00 01/05/17 14:59 01/03/17 14:23 (Vitamin B1) 100 mg DAILY PO 01/04/17 09:00 (Romazicon Inj) 0.2 mg Q1M PRN IV PUSH 12/31/16 13:45 (Ativan) 1 mg Q4H PRN PO 12/31/16 13:45 (Ativan Inj) 1 mg Q4H PRN IV PUSH 12/31/16 13:45 01/03/17 15:14 (Ativan) 2 mg Q2H PRN PO 12/31/16 13:45 (Ativan Inj) 2 mg Q2H PRN IV PUSH 12/31/16 13:45 01/02/17 10:50 (Ativan Inj) 2 mg Q1H PRN IV PUSH 12/31/16 13:45 01/03/17 08:58 (Ativan Inj) 2 mg Q15M PRN IV PUSH 12/31/16 13:45 01/03/17 09:43 Enoxaparin Sodium 40 mg 40 mg Q24H SQ 01/01/17 08:00 01/03/17 07:57 Levetriacetam 500 mg/Sodium Chloride 105 ml @ 420 mls/hr Q12HR IV 12/31/16 21:00 01/03/17 08:01 (NS 1000 ml Inj) 1,000 ml @ 84 mls/hr [id number] IV 12/31/16 15:00 01/03/17 12:49 (NS Flush) 2 ml UNSCH PRN IV FLUSH 12/31/16 14:00 01/03/17 08:02 (NS Flush) 2 ml BID IV FLUSH 12/31/16 21:00 01/03/17 08:02 (Tylenol) 650 mg Q6H PRN PO 12/31/16 14:00 ([place] 5-325 Mg) 1 tab Q4H PRN PO 12/31/16 14:00 01/01/17 20:37 (Morphine Inj) 2 mg Q2H PRN IV 12/31/16 14:00 01/03/17 17:06 (Protonix Inj) 40 mg DAILY IV 01/01/17 09:00 01/03/17 08:02 (Tears Naturale Opth Soln) 1 drop TID EACH EYE 12/31/16 18:00 01/03/17 18:53 (Zofran Inj) 4 mg Q6H PRN IV 12/31/16 14:00 Miscellaneous Information 1 Q361D XX 12/31/16 14:00 (Chlorhexidine 2% Cloth) 3 pack Taper DAILY@04 TOP 01/01/17 04:00 12/28/17 03:59 01/03/17 04:09 (Chlorhexidine 2% Cloth) 3 pack UNSCH PRN TOP 12/31/16 14:00 (Marisabel-Colace) 1 tab BID PO 12/31/16 21:00 (Milk Of Magnesia Liq) 30 ml Q12H PRN PO 12/31/16 14:00 (Senokot) 17.2 mg Q12H PRN PO 12/31/16 14:00 (Dulcolax Supp) 10 mg DAILY PRN RECTAL 12/31/16 14:00 Lactulose 30 ml 30 ml DAILY PRN PO 12/31/16 14:00 Potassium Chloride 100 ml @ 50 mls/hr Q2H PRN IV 12/31/16 14:00 (KCl 20 Meq Premix Inj) 100 ml @ 50 mls/hr Q2H PRN IV 12/31/16 14:00 Potassium Bicarb/ Potassium Chloride 50 meq 50 meq UNSCH PRN PO 12/31/16 14:00 01/03/17 15:38 Potassium Chloride 100 ml @ 25 mls/hr UNSCH PRN IV 12/31/16 14:00 Potassium Chloride 100 ml @ 50 mls/hr Q2H PRN IV 12/31/16 14:00 01/03/17 15:45 (Magnesium Sulfate Inj/NS Inj) 100 ml @ 50 mls/hr UNSCH PRN IV 12/31/16 14:00 Magnesium Oxide 800 mg 800 mg UNSCH PRN PO 12/31/16 14:00 (Magnesium Sulfate Inj/NS Inj) 100 ml @ 50 mls/hr UNSCH PRN IV 12/31/16 14:00 Potassium Phosphate 2000 mg 2,000 mg Q4H PRN PO 12/31/16 14:00 (Sodium Phosphate Inj/NS 250 ml Inj) 250 ml @ 42 mls/hr UNSCH PRN IV 12/31/16 14:00 Potassium Phosphate 2000 mg 2,000 mg UNSCH PRN PO/TUBE 12/31/16 14:00 (Potassium Phosphate Inj/NS 250 ml Inj) 260 ml @ 42 mls/hr UNSCH PRN IV 12/31/16 14:00 01/03/17 02:17 (D50w (Vial) Inj) 50 ml UNSCH PRN IV 12/31/16 14:00 (Glucagon Inj) 1 mg UNSCH PRN OTHER 12/31/16 14:00 Insulin Human Regular 1 1 Q6HR SQ 12/31/16 18:00 01/02/17 06:00 (Precedex Inj/NS 250 ml Inj) 250 ml @ 0 mls/hr TITRATE IV 01/01/17 22:45 01/03/17 07:56 (Apresoline Inj) 10 mg Q1HR PRN IV PUSH 01/02/17 22:00 01/03/17 06:19 (Nitroglycerin 2% Oint) 2 inch Q6HR PRN TOPICAL 01/02/17 22:00 (Habitrol 14 Mg Patch.24 Hr) 1 patch DAILY T-DERMAL 01/03/17 11:15 01/03/17 11:17 Miscellaneous Information 1 HS T-DERMAL 01/03/17 21:00 (Haldol Inj) 2 mg Q4H PRN IV 01/03/17 18:00 (Librium) 25 mg Q8H PO 01/03/17 15:00 01/03/17 15:13 Allergies Allergies Coded Allergies UNOBTAINABLE (Unverified12/31/16) Exam I&O / VS 01/02/17 01/02/17 01/03/17 14:59 22:59 06:59 Intake Total 1144 ml 1113 ml 1274 ml Output Total 1850 ml 800 ml 1100 ml Balance -706 ml 313 ml 174 ml Intake Oral 0 ml 0 ml IV Total 1144 ml 1113 ml 1274 ml Output Urine Total 1850 ml 800 ml 1100 ml # Bowel Movements 1 1 0 Vital Signs Date Time Temp Pulse Resp B/P Pulse Ox O2 Delivery O2 Flow Rate FiO2 01/03/17 18:00 102 01/03/17 16:00 98.8 92 27 106/74 95 01/03/17 16:00 92 01/03/17 15:00 98 32 101/74 94 01/03/17 14:00 71 01/03/17 14:00 71 30 145/93 96 01/03/17 13:00 64 23 145/89 96 01/03/17 12:00 99.7 73 24 120/78 95 01/03/17 12:00 73 01/03/17 11:00 77 45 120/91 96 01/03/17 10:00 93 01/03/17 10:00 93 26 119/78 96 01/03/17 09:22 95 21 01/03/17 09:00 79 23 118/81 95 01/03/17 08:00 100.1 67 26 134/87 96 01/03/17 08:00 67 01/03/17 07:00 78 47 133/89 96 01/03/17 06:00 58 01/03/17 04:00 99.6 56 24 169/98 98 01/03/17 04:00 56 01/03/17 02:00 59 01/03/17 00:00 91 01/03/17 00:00 98.1 91 32 161/85 98 01/02/17 22:00 56 01/02/17 21:21 99 21 01/02/17 20:00 54 01/02/17 20:00 99.1 54 24 178/101 96 Objective Micro and Labs Laboratory Tests Test 01/02/17 01/03/17 01/03/17 23:57 14:21 17:15 Potassium Level 3.1 3.2 Phosphorus Level 1.9 2.5 White Blood Count 5.1 Red Blood Count 4.37 Hemoglobin 15.2 Hematocrit 44.2 Mean Corpuscular Volume 101.2 Mean Corpuscular Hemoglobin 34.8 Mean Corpuscular Hemoglobin 34.4 Concent Red Cell Distribution Width 13.3 Platelet Count 161 Mean Platelet Volume 7.1 Neutrophils (%) (Auto) 65.0 Lymphocytes (%) (Auto) 20.9 Monocytes (%) (Auto) 13.1 Eosinophils (%) (Auto) 0.6 Basophils (%) (Auto) 0.4 Neutrophils # (Auto) 3.3 Lymphocytes # (Auto) 1.1 Monocytes # (Auto) 0.7 Eosinophils # (Auto) 0.0 Basophils # (Auto) 0.0 CBC Comment DIFF FINAL Differential Comment Sodium Level 137 Chloride Level 105 Carbon Dioxide Level 22.5 Anion Gap 10 Blood Urea Nitrogen 7 Creatinine 0.52 Estimat Glomerular Filtration 166 Rate Random Glucose 92 Calcium Level 8.6 Magnesium Level 1.8 Total Bilirubin 1.0 Aspartate Amino Transf 36 (AST/SGOT) Alanine Aminotransferase 31 (ALT/SGPT) Alkaline Phosphatase 77 Total Protein 7.4 Albumin 3.1 Troponin I 0.02 Date/Time Procedure Status Source Growth 12/31/16 17:46 Influenza Types A,B Antigen (FLORA) - Final Complete Nasal Washing NEGATIVE FOR FLU A AND B ANTIGEN.... 12/31/16 13:04 Gram Stain - Final Complete Cerebral Spinal Fluid Lumbar Puncture 12/31/16 13:04 CSF Culture - Final Complete Cerebral Spinal Fluid Lumbar Puncture NO GROWTH IN 72 HOURS 12/31/16 12:17 Urine Culture - Final Complete Urine Catheterized Urine 50-100,000 CFU/ML MIXED GRAM POSITIVE... 12/31/16 11:50 Aerobic Blood Culture - Preliminary Resulted Blood Peripheral NO GROWTH IN 3 DAYS 12/31/16 11:50 Anaerobic Blood Culture - Preliminary Resulted Blood Peripheral NO GROWTH IN 3 DAYS Teena Kee MD Jan 03, 2017 19:14
[2017-01-03] MEDS: REMOVE OLD NICODERM (NICOTINE) PATCH T-DERMAL SCH (21:00)
[2017-01-04] VITALS (14 sets, daily range): BP systolic 128–151; BP diastolic 82–97; PULSE 81–115; RESP 21–28; TEMP 98.1–99.5; O2SAT 96–100
[2017-01-04] MEDS: RESP: ALBUTEROL 2.5 MG/IPRATROPIUM 0.5 MG NEB (SCH) INH ×3 (04:37→15:05)
[2017-01-04] MEDS: chlordiazePOXIDE 25 MG CAP PO SCH ×3 (04:53→21:52)
[2017-01-04] MEDS: INSULIN NovoLIN REGULAR SUPPLEMENTAL SCALE SQ SCH ×4 (04:56→18:00)
[2017-01-04] MEDS: MORPHINE SULFATE 4 MG/ML INJ IV PRN ×3 (06:20→21:53)
[2017-01-04] MEDS: ARTIFICIAL TEARS OPTH SOLN 15 ML BTL EACH EYE SCH ×3 (08:43→15:08)
[2017-01-04] MEDS: DOCUSATE SODIUM 50 MG/SENNA 8.6 MG TAB PO SCH ×2 (09:00→21:50)
[2017-01-04] MEDS: FOLIC ACID 1 MG TAB PO SCH (09:13)
[2017-01-04] MEDS: SODIUM CHLORIDE 0.9% FLUSH 10 ML FLUSH IV FLUSH SCH ×2 (09:13→21:49)
[2017-01-04] MEDS: THIAMINE HCL 100 MG TAB PO SCH (09:13)
[2017-01-04] MEDS: levETIRAcetam INJ 500 MG in SODIUM CHLORIDE 0.9% INJ 100 ML IV SCH ×2 (09:14→21:49)
[2017-01-04] MEDS: PANTOPRAZOLE SODIUM 40 MG VIAL IV SCH (09:14)
[2017-01-04] MEDS: ENOXAPARIN SODIUM 40 MG/0.4 ML SYRINGE SQ SCH (09:15)
[2017-01-04] MEDS: NICOTINE 14 MG/24 HR PATCH T-DERMAL SCH (09:16)
--- NOTE | 2017-01-04 09:50 | HHI.CCPN ---
Subjective Remarks/Hospital Course This is a middle-aged male. Name possibly Dar Knox. He acknowledges. This is on his bottle of Levetiracetam. He acknowledges being approximately 51 years old. According to records, past medical history of EtOH , hepatitis C bipolar disorder, tobaccoism, THC/polysubstance abuse, COPD and alcoholism treatment 12-18 beers daily. He was found by an acquaintance unresponsive and febrile. His transported to [facility] with questionable seizure activity noted in route. At this facility, patient was noted to be febrile temperature greater than 102. CT head showed plating in the right maxillary sinus region. He also has history of left mandible fracture with abscess formation after he left AMA. 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 Patient has a macrocytosis, thrombocytopenia, elevated AST and elevated PTT. Sodium is 132. Remainder baseline laboratories unremarkable. Lumbar puncture was clear to according to ED physician. Results still pending. Received 1 g vancomycin and 2 g ceftriaxone IV. Noted toxicology screen and multiple laboratory still pending at time of dictation. When I evaluated patient, ABG showed pH 7.2, PCO2 60, PO2 177. Patient was taken up nonrebreather mask is currently on a Venturi mask. Currently saturation 100%. Patient came more awake and alert. States he drinks alcohol and recently did methamphetamines. He states he did not inject. No track valdivia are appreciated on his arms. 01/01 No events overnight. Patient is awake and alert on room air oxygen when seen. Afebrile. LP yesterday showed clear CSF. 01/02 Patient was agitated overnight placed on Precedex drip. Afebrile. 01/03 patient is on maximum Precedex 1.4 mg per kg per hour. On lightening sedation he becomes agitated. I have asked that indicated now and then to reduce the need for Precedex. If pt can take by mouth Will start scheduled Librium 01/04 No events overnight. Off Precedex. Afebrile. Objective Vital Signs Date Time Temp Pulse Resp B/P Pulse Ox O2 Delivery O2 Flow Rate FiO2 01/04/17 08:25 98 Nasal Cannula 2.00 01/04/17 06:00 85 01/04/17 04:00 99.1 28 133/88 01/03/17 09:22 21 Intake and Output 01/03/17 01/03/17 01/04/17 08:00 16:00 00:00 Intake Total 1274 ml 1004 ml 895 ml Output Total 1100 ml 775 ml 450 ml Balance 174 ml 229 ml 445 ml Result Diagram: 01/03/17 1421 01/04/17 0421 Other Results Laboratory Tests Test 01/03/17 01/03/17 01/04/17 14:21 17:15 04:21 White Blood Count 5.1 TH/MM3 Red Blood Count 4.37 MIL/MM3 Hemoglobin 15.2 GM/DL Hematocrit 44.2 % Mean Corpuscular Volume 101.2 FL Mean Corpuscular Hemoglobin 34.8 PG Mean Corpuscular Hemoglobin 34.4 % Concent Red Cell Distribution Width 13.3 % Platelet Count 161 TH/MM3 Mean Platelet Volume 7.1 FL Neutrophils (%) (Auto) 65.0 % Lymphocytes (%) (Auto) 20.9 % Monocytes (%) (Auto) 13.1 % Eosinophils (%) (Auto) 0.6 % Basophils (%) (Auto) 0.4 % Neutrophils # (Auto) 3.3 TH/MM3 Lymphocytes # (Auto) 1.1 TH/MM3 Monocytes # (Auto) 0.7 TH/MM3 Eosinophils # (Auto) 0.0 TH/MM3 Basophils # (Auto) 0.0 TH/MM3 CBC Comment DIFF FINAL Differential Comment Sodium Level 137 MEQ/L Potassium Level 3.2 MEQ/L 3.8 MEQ/L Chloride Level 105 MEQ/L Carbon Dioxide Level 22.5 MEQ/L Anion Gap 10 MEQ/L Blood Urea Nitrogen 7 MG/DL Creatinine 0.52 MG/DL Estimat Glomerular Filtration 166 ML/MIN Rate Random Glucose 92 MG/DL Calcium Level 8.6 MG/DL Phosphorus Level 2.5 MG/DL Magnesium Level 1.8 MG/DL Total Bilirubin 1.0 MG/DL Aspartate Amino Transf 36 U/L (AST/SGOT) Alanine Aminotransferase 31 U/L (ALT/SGPT) Alkaline Phosphatase 77 U/L Total Protein 7.4 GM/DL Albumin 3.1 GM/DL Troponin I 0.02 NG/ML Imaging Last Impressions Head CT 12/31/16 1127 Signed Impressions: Service Date/Time: Saturday, December 31, 2016 12:29 - CONCLUSION: 1. No acute intracranial abnormality is identified. 2. Paranasal sinus mucoperiosteal thickening. Dar Pham MD Chest X-Ray 12/31/16 1127 Signed Impressions: Service Date/Time: Saturday, December 31, 2016 11:52 - CONCLUSION: No acute cardiopulmonary abnormality is identified. Dar Pham MD Objective Remarks GENERAL: Middle-aged disheveled male lying in bed gets agitated on lightening sedation SKIN: Warm and dry. No rash. Bilateral upper extremity tattoos. HEAD: Prior scars left mandible from traumatic brain injury/fracture/history of right maxillary ORIF EYES: Pupils equal and round about 2 mm bilaterally and reactive. No scleral icterus. No injection or drainage. ENT: No nasal bleeding or discharge. Mucous membranes pink and moist. NECK: Trachea midline. No JVD. CARDIOVASCULAR: Tachycardic rate and rhythm. S1, S2. No S4. Without murmur RESPIRATORY: Diminished breath sounds throughout. GASTROINTESTINAL: Abdomen soft, non-tender, nondistended. Hypoactive bowel sounds MUSCULOSKELETAL: Extremities without significant peripheral edema. No obvious deformities. NEUROLOGICAL: Sedated on Precedex but wakes up. Moves all extremities equally. Not following commands on heavy sedation A/P Assessment and Plan Neuro/Psych: Acute delirium Alcohol withdrawal syndrome Seizure disorder History of TBI age 14 History of left mandible fracture 2015 Bipolar disorder NOS EtOH THC use, methamphetamine use History of polysubstance abuse History of suicide ideation Neuro: Off Peridex drip . On PRN Haldol, Librium 25mg Q8 CT head revealed retained hardware left mandible/right maxillary region from prior trauma, otherwise no acute intracranial findings CSF glucose 112/MBS is 227 and CSF protein 48.3 which is slightly elevated Clear CSF with 3 WBC Seizure precaution/DT withdrawal protocol Continue with Ash CARDOZO initiated see orders. Thiamine, folate, multivitamin daily UDS- Cannabinoids Neuro- Dr. Kee- no further intervention from neuro standpoint CV: Monitor HR and BP keep MAP>65mmhg Resp: COPD Tobaccoism 1.5 packs per day Oxygen to keep sat > 90% Bronchodilators CXR: No acute disease Tobacco cessation will be encouraged when appropriate GI: Elevated AST History pancreatitis History of hepatitis C unknown genotype/treatment On PO heart healthy diet as tolerated Pantoprazole for GI prophylaxis Docusate sodium/senna 1 tablet twice a day for bowel regimen : Hyponatremia Monitor renal function, I/O's, electrolytes replacement per protocol. On NS@84ml/hr, d/c IVF Endo: Hyperglycemia SSI with Novolin r to maintain euglycemia with Accu-Cheks every 6 hours Heme: Macrocytosis without anemia Elevated PTT Monitor CBC daily. Follow trends ID: Off abx monitor for signs of infections ( Fever, WBC) LP: clear CSF, 3 WBC, fluid cx; No growth Follow up on CSF cx, HSV DNA PCR negative Follow up on blood and urine cxs.. NGTD Influenza Ag negative MSK: PT evaluate and treat for range of motion Access - Utilize peripheral IV. Prophylaxis - GI - pantoprazole - DVT - SCD/enoxaparin Follow up labs today Level 2 Filiberto Zhou MD Jan 04, 2017 09:49
--- NOTE | 2017-01-04 11:29 | EKG ---
Date Performed: 01/03/2017 Time Performed: 17:14:12 PTAGE: 51 years EKG: Sinus tachycardia Short FL interval Borderline ECG Compared to prior tracing no significant change PREVIOUS TRACING : 12/31/2016 11.58 DOCTOR: Ulysses Hunter Interpretating Date/Time 01/04/2017 11:28:13
[2017-01-04 13:00] LABS: AUTOMATED NEUTROPHIL # 3.9 TH/MM3 (1.8-7.7); BASOPHIL % 0.7 % (0.0-2.0); EOSINOPHIL % 0.8 % (0.0-4.0); LYMPH % 17.8 % (9.0-44.0); MONO % 11.7 % (0.0-8.0); PLATELET COUNT 160 TH/MM3 (150-450); WHITE BLOOD COUNT 5.6 TH/MM3 (4.0-11.0)
[2017-01-04 13:04] LABS: HEMO FLAGS AUTO DIFF
[2017-01-04 13:20] LABS: BICARBONATE 23.8 MEQ/L (21.0-32.0); POTASSIUM 3.4 MEQ/L (3.5-5.1)
[2017-01-04 13:31] LABS: SCAN/DIFF AUTO DIFF CONFIRMED
[2017-01-04] MEDS: POTASSIUM CHLOR 20 MEQ PREMIX 100 ML IV PRN ×2 (13:48→14:36)
[2017-01-04] MEDS: MULTIVITAMIN INJ 10 ML, FOLIC ACID INJ 1 MG in SODIUM CHLORID 0.9% 500 ML INJ 500 ML IV SCH (17:06)
[2017-01-04] MEDS: REMOVE OLD NICODERM (NICOTINE) PATCH T-DERMAL SCH (21:00)
[2017-01-05] VITALS (13 sets, daily range): BP systolic 114–142; BP diastolic 76–89; PULSE 69–105; RESP 18–21; TEMP 98.1–98.9; O2SAT 91–100
[2017-01-05] MEDS: CHLORHEXIDINE GLUCONATE 2 % 1 PACK (2 CLOTHS) TOP SCH (01:41)
[2017-01-05] MEDS: INSULIN NovoLIN REGULAR SUPPLEMENTAL SCALE SQ SCH ×4 (06:00→16:41)
[2017-01-05] MEDS: chlordiazePOXIDE 25 MG CAP PO SCH ×2 (06:05→21:25)
[2017-01-05 08:25] LABS: AUTOMATED NEUTROPHIL # 2.9 TH/MM3 (1.8-7.7); BASOPHIL % 0.8 % (0.0-2.0); EOSINOPHIL # 0.2 TH/MM3 (0-0.4); EOSINOPHIL % 3.6 % (0.0-4.0); HEMATOCRIT 38.1 % (39.0-51.0); HEMO FLAGS DIFF FINAL; LYMPH % 21.2 % (9.0-44.0); MEAN CELL VOLUME 100.8 FL (80.0-100.0); MEAN CORPUSCULAR HEMOGLOBIN 36.1 PG (27.0-34.0); MEAN CORPUSCULAR HGB CONC 35.9 % (32.0-36.0); NEUT % 60.4 % (16.0-70.0); PLATELET COUNT 180 TH/MM3 (150-450); RED BLOOD COUNT 3.78 MIL/MM3 (4.50-5.90); RED CELL DISTRIBUTION WIDTH 13.1 % (11.6-17.2); WHITE BLOOD COUNT 4.8 TH/MM3 (4.0-11.0)
[2017-01-05 08:55] LABS: BICARBONATE 24.5 MEQ/L (21.0-32.0); POTASSIUM 3.3 MEQ/L (3.5-5.1)
[2017-01-05] MEDS: ARTIFICIAL TEARS OPTH SOLN 15 ML BTL EACH EYE SCH ×3 (09:00→16:27)
[2017-01-05] MEDS: DOCUSATE SODIUM 50 MG/SENNA 8.6 MG TAB PO SCH ×2 (09:00→21:24)
[2017-01-05] MEDS: POTASSIUM CHLOR 20 MEQ PREMIX 100 ML IV PRN ×2 (09:52→11:26)
[2017-01-05] MEDS: levETIRAcetam INJ 500 MG in SODIUM CHLORIDE 0.9% INJ 100 ML IV SCH ×2 (09:53→21:24)
[2017-01-05] MEDS: SODIUM CHLORIDE 0.9% FLUSH 10 ML FLUSH IV FLUSH SCH ×2 (09:55→21:00)
[2017-01-05] MEDS: ENOXAPARIN SODIUM 40 MG/0.4 ML SYRINGE SQ SCH (09:55)
[2017-01-05] MEDS: NICOTINE 14 MG/24 HR PATCH T-DERMAL SCH (09:55)
[2017-01-05] MEDS: PANTOPRAZOLE SODIUM 40 MG VIAL IV SCH (09:55)
[2017-01-05] MEDS: FOLIC ACID 1 MG TAB PO SCH (09:56)
[2017-01-05] MEDS: THIAMINE HCL 100 MG TAB PO SCH (09:56)
--- NOTE | 2017-01-05 11:57 | HHI.PR ---
Subjective Remarks Follow-up encephalopathy, alcohol withdrawal. The patient states that he feels better today. He reports history of COPD, asthma. States that his breathing is okay at this time. Objective Vitals Vital Signs Date Time Temp Pulse Resp B/P Pulse Ox O2 Delivery O2 Flow Rate FiO2 01/05/17 10:00 105 01/05/17 08:44 96 Nasal Cannula 3.00 01/05/17 08:00 98.9 86 20 123/81 91 01/05/17 08:00 86 01/05/17 06:00 74 01/05/17 04:00 98.3 90 20 142/88 100 01/05/17 04:00 90 01/05/17 02:00 79 01/05/17 00:00 98.6 84 20 134/89 93 01/05/17 00:00 84 01/04/17 22:00 107 01/04/17 20:51 99 Nasal Cannula 2.00 01/04/17 20:00 98.1 97 24 129/85 100 01/04/17 20:00 97 01/04/17 18:00 81 01/04/17 16:00 92 01/04/17 16:00 98.9 92 21 151/97 99 01/04/17 14:00 89 01/04/17 12:00 103 01/04/17 12:00 98.1 97 22 128/82 96 I/O 01/04/17 01/04/17 01/04/17 01/05/17 01/05/17 01/05/17 07:00 15:00 23:00 07:00 15:00 23:00 Intake Total 1000 ml 832 ml 1076 ml 241 ml Output Total 750 ml 975 ml 1100 ml 600 ml Balance 250 ml -143 ml -24 ml -359 ml Intake Oral 300 ml 180 ml 200 ml 60 ml IV Total 700 ml 652 ml 876 ml 181 ml Output Urine Total 750 ml 975 ml 1100 ml 600 ml # Bowel Movements 3 1 1 0 Result Diagram: 01/05/17 0630 01/05/17 0630 Imaging Last Impressions Head CT 12/31/16 1127 Signed Impressions: Service Date/Time: Saturday, December 31, 2016 12:29 - CONCLUSION: 1. No acute intracranial abnormality is identified. 2. Paranasal sinus mucoperiosteal thickening. Dar Pham MD Chest X-Ray 12/31/16 1127 Signed Impressions: Service Date/Time: Saturday, December 31, 2016 11:52 - CONCLUSION: No acute cardiopulmonary abnormality is identified. Dar Pham MD Objective Remarks General: Disheveled male in no acute distress. Heart: Regular rate and rhythm. No murmur. Lungs: Clear to auscultation bilaterally. No wheezes, rales, or rhonchi. Breathing is nonlabored. Abdomen: Soft, nontender, nondistended. Extremities: No lower extremity edema. Psych: Alert, answers questions appropriately. Procedures Last Impressions Head CT 12/31/16 1127 Signed Impressions: Service Date/Time: Saturday, December 31, 2016 12:29 - CONCLUSION: 1. No acute intracranial abnormality is identified. 2. Paranasal sinus mucoperiosteal thickening. Dar Pham MD Chest X-Ray 12/31/16 1127 Signed Impressions: Service Date/Time: Saturday, December 31, 2016 11:52 - CONCLUSION: No acute cardiopulmonary abnormality is identified. Dar Pham MD Urinary Catheter: No Vascular Central Line Catheter: No A/P Problem List: (1) Seizure disorder ICD Code: G40.909 Status: Chronic (2) Bipolar 1 disorder ICD Code: F31.9 Status: Chronic (3) Alcoholism ICD Code: F10.20 Status: Chronic (4) Pyrexia ICD Code: R50.9 Status: Acute (5) Altered mental status, unspecified ICD Code: R41.82 Status: Acute (6) Macrocytosis without anemia ICD Code: D75.89 Status: Acute (7) Thrombocytopenia ICD Code: D69.6 Status: Acute (8) Hyponatremia ICD Code: E87.1 Status: Acute (9) Hyperglycemia ICD Code: R73.9 Status: Acute (10) Elevated AST (SGOT) ICD Code: R74.0 Status: Acute (11) Depression ICD Code: F32.9 Status: Chronic (12) Polysubstance abuse ICD Code: F19.10 Status: Chronic (13) Tobacco abuse ICD Code: Z72.0 Status: Chronic (14) Tetrahydrocannabinol (THC) use disorder, mild, abuse ICD Code: F12.10 Status: Chronic (15) COPD (chronic obstructive pulmonary disease) ICD Code: J44.9 Status: Chronic (16) Acute respiratory acidosis ICD Code: E87.2 Status: Acute (17) Hepatitis C ICD Code: B19.20 Status: Chronic (18) Acute hypoxemic respiratory failure ICD Code: J96.01 Status: Acute (19) SIRS (systemic inflammatory response syndrome) ICD Code: R65.10 Status: Acute Assessment and Plan 1. Alcohol abuse, withdrawal: Withdrawal symptoms improved. Off Precedex drip. Haldol as needed. Taper Librium. Discontinue CIWA protocol. Continue thiamine, folic acid, multivitamin. 2. Encephalopathy: Secondary to above. Improved. Appreciate neurology recommendations. 3. Polysubstance abuse: Patient will need further counseling. 4. Seizure disorder: Continue Keppra. Appreciate neurology recommendations. 5. Bipolar disorder: 6. Fever: Resolved. Cultures are negative so far. Influenza negative. LP showed clear CSF with 3 WBCs. 7. GI prophylaxis: Protonix. 8. DVT prophylaxis: SCDs, Lovenox. Discharge Planning Transfer to med/surg with telemetry. Problem Qualifiers (1) Pyrexia: Qualified Code: R50.2 - Drug-induced fever (2) Altered mental status, unspecified: Qualified Code: R41.82 - Altered mental status, unspecified altered mental status type (3) Depression: Qualified Code: F33.9 - Episode of recurrent major depressive disorder, unspecified depression episode severity (4) COPD (chronic obstructive pulmonary disease): Qualified Code: J44.9 - Chronic obstructive pulmonary disease, unspecified COPD type (5) Hepatitis C: Qualified Code: B19.20 - Hepatitis C virus infection without hepatic coma, unspecified chronicity Prosper Paulino MD Jan 05, 2017 11:57
[2017-01-05] MEDS: ACETAMINOPHEN/HYDROcodone 325 MG/5 MG TAB PO PRN ×2 (16:40→21:25)
[2017-01-05] MEDS: REMOVE OLD NICODERM (NICOTINE) PATCH T-DERMAL SCH (21:00)
[2017-01-06] VITALS (8 sets, daily range): BP systolic 106–117; BP diastolic 66–86; PULSE 78–117; RESP 16–18; TEMP 97.5–98.3; O2SAT 93–98
[2017-01-06] MEDS: CHLORHEXIDINE GLUCONATE 2 % 1 PACK (2 CLOTHS) TOP SCH ×2 (00:05→23:41)
[2017-01-06] MEDS: INSULIN NovoLIN REGULAR SUPPLEMENTAL SCALE SQ SCH ×5 (06:00→23:41)
[2017-01-06 08:12] LABS: AUTOMATED NEUTROPHIL # 3.6 TH/MM3 (1.8-7.7); BASOPHIL % 0.5 % (0.0-2.0); EOSINOPHIL # 0.2 TH/MM3 (0-0.4); EOSINOPHIL % 2.8 % (0.0-4.0); HEMO FLAGS DIFF FINAL; LYMPH % 19.7 % (9.0-44.0); LYMPHOCYTE # 1.1 TH/MM3 (1.0-4.8); MEAN CELL VOLUME 100.9 FL (80.0-100.0); MEAN CORPUSCULAR HEMOGLOBIN 35.6 PG (27.0-34.0); MEAN CORPUSCULAR HGB CONC 35.3 % (32.0-36.0); MONO % 13.9 % (0.0-8.0); NEUT % 63.1 % (16.0-70.0); PLATELET COUNT 204 TH/MM3 (150-450); RED BLOOD COUNT 4.07 MIL/MM3 (4.50-5.90); RED CELL DISTRIBUTION WIDTH 13.1 % (11.6-17.2); WHITE BLOOD COUNT 5.7 TH/MM3 (4.0-11.0)
[2017-01-06] MEDS: NICOTINE 14 MG/24 HR PATCH T-DERMAL SCH (08:19)
[2017-01-06] MEDS: THIAMINE HCL 100 MG TAB PO SCH (08:19)
[2017-01-06] MEDS: chlordiazePOXIDE 25 MG CAP PO SCH (08:19)
[2017-01-06] MEDS: ENOXAPARIN SODIUM 40 MG/0.4 ML SYRINGE SQ SCH (08:20)
[2017-01-06] MEDS: ARTIFICIAL TEARS OPTH SOLN 15 ML BTL EACH EYE SCH ×3 (08:20→18:12)
[2017-01-06] MEDS: levETIRAcetam INJ 500 MG in SODIUM CHLORIDE 0.9% INJ 100 ML IV SCH ×2 (08:20→20:46)
[2017-01-06] MEDS: SODIUM CHLORIDE 0.9% FLUSH 10 ML FLUSH IV FLUSH SCH ×2 (08:20→20:45)
[2017-01-06] MEDS: PANTOPRAZOLE SODIUM 40 MG VIAL IV SCH (08:20)
[2017-01-06] MEDS: DOCUSATE SODIUM 50 MG/SENNA 8.6 MG TAB PO SCH ×2 (08:21→20:45)
[2017-01-06 08:35] LABS: BICARBONATE 25.2 MEQ/L (21.0-32.0); MAGNESIUM 2.2 MG/DL (1.5-2.5); POTASSIUM 3.7 MEQ/L (3.5-5.1)
[2017-01-06] MEDS: ACETAMINOPHEN/HYDROcodone 325 MG/5 MG TAB PO PRN ×3 (09:23→20:49)
--- NOTE | 2017-01-06 11:09 | HHI.PR ---
Subjective Remarks Follow-up encephalopathy, alcohol withdrawal. Patient reports feeling a little better today. Still having pain "all over". No reported seizures. Objective Vitals Vital Signs Date Time Temp Pulse Resp B/P Pulse Ox O2 Delivery O2 Flow Rate FiO2 01/06/17 08:00 98.0 83 18 117/77 93 01/06/17 04:00 98.3 78 18 113/74 95 01/06/17 00:00 98.0 84 18 113/68 98 01/05/17 22:29 94 01/05/17 21:25 73 01/05/17 20:00 98.5 69 18 118/76 95 01/05/17 16:00 98.3 92 18 121/76 94 01/05/17 14:00 86 01/05/17 12:00 98.1 91 21 114/78 100 01/05/17 12:00 91 I/O 01/05/17 01/05/17 01/05/17 01/06/17 01/06/17 01/06/17 07:00 15:00 23:00 07:00 15:00 23:00 Intake Total 241 ml 1035 ml Output Total 600 ml 450 ml 300 ml Balance -359 ml 585 ml -300 ml Intake Oral 60 ml 600 ml IV Total 181 ml 435 ml Output Urine Total 600 ml 450 ml 300 ml # Voids 1 # Bowel Movements 0 1 Result Diagram: 01/06/17 0720 01/06/17 0720 Imaging Last Impressions Head CT 12/31/161126 Signed Impressions: Service Date/Time: Saturday, December 31, 2016 12:29 - CONCLUSION: 1. No acute intracranial abnormality is identified. 2. Paranasal sinus mucoperiosteal thickening. Dar Pham MD Chest X-Ray 12/31/161126 Signed Impressions: Service Date/Time: Saturday, December 31, 2016 11:52 - CONCLUSION: No acute cardiopulmonary abnormality is identified. Dar Pham MD Objective Remarks General: Disheveled male in no acute distress. Heart: Regular rate and rhythm. No murmur. Lungs: Clear to auscultation bilaterally. No wheezes, rales, or rhonchi. Breathing is nonlabored. Abdomen: Soft, nontender, nondistended. Extremities: No lower extremity edema. Psych: Alert, answers questions appropriately. Procedures Last Impressions Head CT 12/31/16 1127 Signed Impressions: Service Date/Time: Saturday, December 31, 2016 12:29 - CONCLUSION: 1. No acute intracranial abnormality is identified. 2. Paranasal sinus mucoperiosteal thickening. Dar Pham MD Chest X-Ray 12/31/16 1127 Signed Impressions: Service Date/Time: Saturday, December 31, 2016 11:52 - CONCLUSION: No acute cardiopulmonary abnormality is identified. Dar Pham MD Urinary Catheter: No Vascular Central Line Catheter: No A/P Problem List: (1) Seizure disorder ICD Code: G40.909 Status: Chronic (2) Bipolar 1 disorder ICD Code: F31.9 Status: Chronic (3) Alcoholism ICD Code: F10.20 Status: Chronic (4) Pyrexia ICD Code: R50.9 Status: Acute (5) Altered mental status, unspecified ICD Code: R41.82 Status: Acute (6) Macrocytosis without anemia ICD Code: D75.89 Status: Acute (7) Thrombocytopenia ICD Code: D69.6 Status: Acute (8) Hyponatremia ICD Code: E87.1 Status: Acute (9) Hyperglycemia ICD Code: R73.9 Status: Acute (10) Elevated AST (SGOT) ICD Code: R74.0 Status: Acute (11) Depression ICD Code: F32.9 Status: Chronic (12) Polysubstance abuse ICD Code: F19.10 Status: Chronic (13) Tobacco abuse ICD Code: Z72.0 Status: Chronic (14) Tetrahydrocannabinol (THC) use disorder, mild, abuse ICD Code: F12.10 Status: Chronic (15) COPD (chronic obstructive pulmonary disease) ICD Code: J44.9 Status: Chronic (16) Acute respiratory acidosis ICD Code: E87.2 Status: Acute (17) Hepatitis C ICD Code: B19.20 Status: Chronic (18) Acute hypoxemic respiratory failure ICD Code: J96.01 Status: Acute (19) SIRS (systemic inflammatory response syndrome) ICD Code: R65.10 Status: Acute Assessment and Plan 1. Alcohol abuse, withdrawal: Withdrawal symptoms improved. Off Precedex drip. Haldol as needed. Taper Librium. Off CIWA protocol. Continue thiamine. 2. Encephalopathy: Secondary to above. Improved. Appreciate neurology recommendations. 3. Polysubstance abuse: Patient will need further counseling. 4. Seizure disorder: Continue Keppra. Appreciate neurology recommendations. 5. Bipolar disorder: Chronic, stable. 6. Fever: Resolved. Cultures are negative. Influenza negative. LP showed clear CSF with 3 WBCs. 7. GI prophylaxis: Protonix. 8. DVT prophylaxis: SCDs, Lovenox. Discharge Planning Possible discharge home tomorrow. Patient states that he will be staying with his sister. Problem Qualifiers (1) Pyrexia: Qualified Code: R50.2 - Drug-induced fever (2) Altered mental status, unspecified: Qualified Code: R41.82 - Altered mental status, unspecified altered mental status type (3) Depression: Qualified Code: F33.9 - Episode of recurrent major depressive disorder, unspecified depression episode severity (4) COPD (chronic obstructive pulmonary disease): Qualified Code: J44.9 - Chronic obstructive pulmonary disease, unspecified COPD type (5) Hepatitis C: Qualified Code: B19.20 - Hepatitis C virus infection without hepatic coma, unspecified chronicity Prosper Paulino MD Jan 06, 2017 11:09
[2017-01-06] MEDS: REMOVE OLD NICODERM (NICOTINE) PATCH T-DERMAL SCH (20:46)
[2017-01-07 00:30] VITALS: BP 108/70; PULSE 89; RESP 17; TEMP 98.1; O2SAT 95
[2017-01-07] MEDS: ACETAMINOPHEN/HYDROcodone 325 MG/5 MG TAB PO PRN ×3 (03:01→12:30)
[2017-01-07 04:00] VITALS: BP 110/80; PULSE 72; RESP 19; TEMP 97.9; O2SAT 96
[2017-01-07] MEDS: INSULIN NovoLIN REGULAR SUPPLEMENTAL SCALE SQ SCH ×2 (05:29→12:00)
[2017-01-07 08:00] VITALS: BP 103/66; PULSE 82; RESP 18; TEMP 98; O2SAT 94
[2017-01-07] MEDS: ARTIFICIAL TEARS OPTH SOLN 15 ML BTL EACH EYE SCH ×2 (08:13→12:28)
[2017-01-07] MEDS: NICOTINE 14 MG/24 HR PATCH T-DERMAL SCH (08:14)
[2017-01-07] MEDS: THIAMINE HCL 100 MG TAB PO SCH (08:15)
[2017-01-07] MEDS: PANTOPRAZOLE SODIUM 40 MG VIAL IV SCH (08:16)
[2017-01-07] MEDS: ENOXAPARIN SODIUM 40 MG/0.4 ML SYRINGE SQ SCH (08:16)
[2017-01-07] MEDS: DOCUSATE SODIUM 50 MG/SENNA 8.6 MG TAB PO SCH (08:16)
[2017-01-07] MEDS: levETIRAcetam INJ 500 MG in SODIUM CHLORIDE 0.9% INJ 100 ML IV SCH (08:17)
[2017-01-07] MEDS: SODIUM CHLORIDE 0.9% FLUSH 10 ML FLUSH IV FLUSH SCH (08:17)
[2017-01-07] MEDS ORDERED: chlordiazePOXIDE 25 MG CAP PO SCH (09:00)
[2017-01-07 11:56] VITALS: PULSE 69
[2017-01-07 12:00] VITALS: BP 110/63; PULSE 86; RESP 18; TEMP 97.8; O2SAT 94
[2017-01-07] MEDS ORDERED: HYDR-3516 PO (13:59)
[2017-01-07] MEDS ORDERED: GNP100TA3 PO (13:59)
[2017-01-07] MEDS ORDERED: CHLO10CA5 PO (13:59)
--- NOTE | 2017-01-07 14:00 | HHI.DCPOC ---
Discharge Care Plan Diagnosis: (1) Polysubstance abuse (2) Seizure disorder (3) Depression (4) Alcoholism (5) COPD (chronic obstructive pulmonary disease) (6) SIRS (systemic inflammatory response syndrome) (7) Elevated AST (SGOT) (8) Acute hypoxemic respiratory failure (9) Hypokalemia Goals to Promote Your Health * To prevent worsening of your condition and complications * To maintain your health at the optimal level Directions to Meet Your Goals Take your medications as prescribed Follow your dietary instruction Follow activity as directed Keep your appointments as scheduled Take your immunizations and boosters as scheduled If your symptoms worsen call your PCP, if no PCP go to Urgent Care Center or Emergency Room Smoking is Dangerous to Your Health. Avoid second hand smoke Call the 24-hour hour crisis hotline for domestic abuse at Prosper Paulino MD Jan 07, 2017 14:00
--- NOTE | 2017-01-07 14:02 | HHI.DS ---
Discharge Summary Admission Date Dec 31, 2016 at 13:15 Discharge Date: Jan 07, 2017 Admitting Diagnosis sepsis. Rule out meningitis. Possible seizure. (1) Seizure disorder ICD Code: G40.909 Diagnosis: Principal (2) Bipolar 1 disorder ICD Code: F31.9 Diagnosis: Principal (3) Alcoholism ICD Code: F10.20 Diagnosis: Principal (4) Pyrexia ICD Code: R50.9 Diagnosis: Principal (5) Altered mental status, unspecified ICD Code: R41.82 Diagnosis: Principal (6) Macrocytosis without anemia ICD Code: D75.89 Diagnosis: Principal (7) Thrombocytopenia ICD Code: D69.6 Diagnosis: Principal (8) Hyponatremia ICD Code: E87.1 Diagnosis: Principal (9) Hyperglycemia ICD Code: R73.9 Diagnosis: Principal (10) Elevated AST (SGOT) ICD Code: R74.0 Diagnosis: Principal (11) Depression ICD Code: F32.9 Diagnosis: Principal (12) Polysubstance abuse ICD Code: F19.10 Diagnosis: Principal (13) Tobacco abuse ICD Code: Z72.0 Diagnosis: Principal (14) Tetrahydrocannabinol (THC) use disorder, mild, abuse ICD Code: F12.10 Diagnosis: Principal (15) COPD (chronic obstructive pulmonary disease) ICD Code: J44.9 Diagnosis: Principal (16) Acute respiratory acidosis ICD Code: E87.2 Diagnosis: Principal (17) Hepatitis C ICD Code: B19.20 Diagnosis: Principal (18) Acute hypoxemic respiratory failure ICD Code: J96.01 Diagnosis: Principal (19) SIRS (systemic inflammatory response syndrome) ICD Code: R65.10 Procedures Last Impressions Head CT 12/31/16 1127 Signed Impressions: Service Date/Time: Saturday, December 31, 2016 12:29 - CONCLUSION: 1. No acute intracranial abnormality is identified. 2. Paranasal sinus mucoperiosteal thickening. Dar Pham MD Chest X-Ray 12/31/16 1127 Signed Impressions: Service Date/Time: Saturday, December 31, 2016 11:52 - CONCLUSION: No acute cardiopulmonary abnormality is identified. Dar Pham MD Brief History - From Admission This is a middle-aged male. Name possibly Dar Knox. He acknowledges. This is on his bottle of Levetiracetam. He acknowledges being approximately 51 years old. According to records, past medical history of EtOH , hepatitis C bipolar disorder, tobaccoism, THC/polysubstance abuse, COPD and alcoholism treatment 12-18 beers daily. He was found by an acquaintance unresponsive and febrile. His transported to [facility] with questionable seizure activity noted in route. At this facility, patient was noted to be febrile temperature greater than 102. CT head showed plating in the right maxillary sinus region. He also has history of left mandible fracture with abscess formation after he left AMA. 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 Patient has a macrocytosis, thrombocytopenia, elevated AST and elevated PTT. Sodium is 132. Remainder baseline laboratories unremarkable. Lumbar puncture was clear to according to ED physician. Results still pending. Received 1 g vancomycin and 2 g ceftriaxone IV. Noted toxicology screen and multiple laboratory still pending at time of dictation. When I evaluated patient, ABG showed pH 7.2, PCO2 60, PO2 177. Patient was taken up nonrebreather mask is currently on a Venturi mask. Currently saturation 100%. Patient came more awake and alert. States he drinks alcohol and recently did methamphetamines. He states he did not inject. No track valdivia are appreciated on his arms. CBC/BMP: 01/06/17 0720 01/06/17 0720 Significant Findings Laboratory Tests Test 01/05/17 01/06/17 06:30 07:20 Red Blood Count 3.78 MIL/MM3 4.07 MIL/MM3 (4.50-5.90) (4.50-5.90) Hematocrit 38.1 % (39.0-51.0) Mean Corpuscular Volume 100.8 FL 100.9 FL (80.0-100.0) (80.0-100.0) Mean Corpuscular Hemoglobin 36.1 PG 35.6 PG (27.0-34.0) (27.0-34.0) Monocytes (%) (Auto) 14.0 % 13.9 % (0.0-8.0) (0.0-8.0) Sodium Level 134 MEQ/L (136-145) Potassium Level 3.3 MEQ/L (3.5-5.1) Creatinine 0.52 MG/DL 0.52 MG/DL (0.60-1.30) (0.60-1.30) Random Glucose 112 MG/DL (74-106) Calcium Level 8.3 MG/DL (8.5-10.1) Imaging Last Impressions Head CT 12/31/16 1127 Signed Impressions: Service Date/Time: Saturday, December 31, 2016 12:29 - CONCLUSION: 1. No acute intracranial abnormality is identified. 2. Paranasal sinus mucoperiosteal thickening. Dar Pham MD Chest X-Ray 12/31/16 1127 Signed Impressions: Service Date/Time: Saturday, December 31, 2016 11:52 - CONCLUSION: No acute cardiopulmonary abnormality is identified. Dar Pham MD PE at Discharge General: Thin male in no acute distress. Heart: Regular rate and rhythm. No murmur. Lungs: Clear to auscultation bilaterally. No wheezes, rales, or rhonchi. Breathing is nonlabored. Abdomen: Soft, nontender, nondistended. Extremities: No lower extremity edema. Psych: Alert, answers questions appropriately. Pt update on day of discharge The patient has no complaints at this time. He feels ready to go home. Denies chest pain, dyspnea, nausea, vomiting. Hospital Course The patient presented to the emergency department after being found unresponsive. There was questionable seizure activity in route to the hospital. He was admitted to the critical care service. He was treated for alcohol withdrawal per [facility] protocol. His agitation worsened and he required Precedex drip. He was weaned off of the Precedex drip and started on Librium. The patient had encephalopathy felt to be secondary to the alcohol withdrawal. His symptoms improved throughout the hospitalization. Neurology was consulted regarding the encephalopathy and seizures. Patient was continued on Keppra. His withdrawal symptoms resolved. He had no further seizure activity. He was felt to be stable for discharge home. Pt Condition on Discharge: Stable Discharge Disposition: Discharge Home Discharge Time: > 30 minutes Discharge Instructions DIET: Follow Instructions for: Heart Healthy Diet Activities you can perform: Regular-No Restrictions Activities to Avoid: Driving Follow up Referrals: PCP Follow-up - 1 Week New Medications: Albuterol 18 GM Inh (Ventolin Hfa 18 GM Inh) 90 Mcg/Act Aer 2 PUFF INH Q4-6H PRN SHORTNESS OF BREATH #1 Ref 0 INHALER Chlordiazepoxide HCl (Chlordiazepoxide HCl) 10 Mg Capsule 10 MG PO DAILY DO NOT DRINK ALCOHOL WHILE TAKING THIS MEDICATION withdrawal #3 Ref 0 CAP Levetiracetam (Levetiracetam) 500 Mg Tab 500 MG PO BID Control Seizures #60 Ref 0 TAB Hydrocodone-Acetaminophen (Hydrocodone-Acetaminophen) 5-325 mg Tab 1 TAB PO Q4H PRN PAIN SCALE 1 TO 10 #15 Ref 0 TAB Thiamine HCl (Gnp Vitamin B-1) 100 Mg Tab 100 MG PO DAILY Nutritional Supplement #30 Ref 0 TAB Prosper Paulino MD Jan 07, 2017 14:02
[2017-01-07] MEDS ORDERED: LEVE500T8 PO (14:03)
[2017-01-07] MEDS ORDERED: VENTAER INH (14:03)
== END 2017-01-07 15:02 | disposition home or self-care (01) | DRG 100 ==
LOC: NEPC 11:21 → NEDA 13:15 → EDBD 13:15 → HIME 01-01 00:40 → N05A 01-05 16:12
PROVIDERS: ADMIT Family Medicine; ATTEND Family Medicine
DX: G40.909 Epilepsy, unspecified, not intractable, without status epilepticus (principal); G93.40 Encephalopathy, unspecified; J96.01 Acute respiratory failure with hypoxia; D69.6 Thrombocytopenia, unspecified; E87.2 Acidosis; E87.1 Hypo-osmolality and hyponatremia; F10.239 Alcohol dependence with withdrawal, unspecified; F33.9 Major depressive disorder, recurrent, unspecified; R50.2 Drug induced fever; D75.89 Other specified diseases of blood and blood-forming organs; R73.9 Hyperglycemia, unspecified; B19.20 Unspecified viral hepatitis C without hepatic coma; E87.6 Hypokalemia; F12.10 Cannabis abuse, uncomplicated; F15.90 Other stimulant use, unspecified, uncomplicated; F17.200 Nicotine dependence, unspecified, uncomplicated; J44.9 Chronic obstructive pulmonary disease, unspecified; Y90.0 Blood alcohol level of less than 20 mg/100 ml; Z59.0 Homelessness; Z78.1 Physical restraint status; Z87.820 Personal history of traumatic brain injury; Z91.19 Patient's noncompliance with other medical treatment and regimen
CPT/HCPCS: 36600; 51702; 70450; 71010; 80048; 80053; 80202; 80307; 81001; 82140; 82150; 82550; 82805; 82945; 82948; 83036; 83605; 83735; 84100; 84132; 84157; 84443; 84484; 85007; 85025; 85027; 85384; 85610; 85730; 86403; 87040; 87070; 87086; 87205; 87529; 87641; 87804; 89051; 93005; 94640; 95819; 96374; C9113; J0133; J0360; J0696; J1630; J1650; J1953; J2060; J2270; J3370; J3411; J3480; J7030; J7040; J7050; J7613